=== PATIENT | female | born 1940 | race Caucasian/White ===

== ENCOUNTER 2018-05-02 09:48 | Emergency (ER) | payer OTHER ==
[2018-05-02 09:59] VITALS: BMI 27.3
--- NOTE | 2018-05-02 10:01 | PDOC ---
History of Present Illness - General Chief Complaint: Injury Stated Complaint: Laceration OVER RIGHT EYE/FALL Time Seen by Provider: 05/02/18 10:00 Past History - Past Medical History Allergies/Adverse Reactions: Allergies Allergy/AdvReac Type Severity Reaction Status Date / Time No Known Allergies Allergy Verified 05/02/18 09:55 Home Medications: Ambulatory Orders Montelukast Na [Singulair -] 10 mg PO HS 12/14/15 Omeprazole [Prilosec (RX)] 40 mg PO DAILY 12/14/15 Zolpidem Tartrate [Ambien] 10 mg PO HS 12/14/15 Albuterol Sulfate Inhaler - [Ventolin HFA Inhaler -] 1 - 2 inh PO QID PRN #0 07/22 Methylprednisolone [Medrol Dose Benedict] 4 mg PO ASDIR #21 tablet 12/15/15 Salmeterol/Fluticasone [Advair 100Mcg/50Mcg -] 1 inh PO BID #1 diskus 12/15/15 Azithromycin [Zithromax Tri-Benedict (3 DAYS) -] 500 mg PO DAILY #3 tablet 12/17/15 Asthma: Yes Cancer: No Cardiac Disorders: No CVA: No COPD: No CHF: No Diabetes: No Hypercholesterolemia: Yes - Immunization History Immunization Up to Date: Yes - Suicide/Smoking/Psychosocial Hx Smoking History: Never smoked Have you smoked in the past 12 months: No Hx Alcohol Use: No Drug/Substance Use Hx: No Substance Use Type: None *Physical Exam - Vital Signs Last Vital Signs Temp Pulse Resp BP Pulse Ox 98.1 F 102 H 18 156/76 94 L 05/02/18 09:55 05/02/18 09:55 05/02/18 09:55 05/02/18 09:55 05/02/18 09:55 *DC/Admit/Observation/Transfer - Referrals Referrals: Addis Hand MD [Primary Care Provider] - - Patient Instructions - Post Discharge Activity
[2018-05-02] MEDS ORDERED: ACETAMINOPHEN 325 MG TABLET (FP) PO ONE (10:18)
--- NOTE | 2018-05-02 10:26 | PDOC ---
History of Present Illness - General Chief Complaint: Injury Stated Complaint: Laceration OVER RIGHT EYE/FALL Time Seen by Provider: 05/02/18 10:00 History Source: Patient, Family - History of Present Illness Occurred: reports: this morning Pain Location: reports: face, head Method of Injury: Yes: fall Past History - Past Medical History Allergies/Adverse Reactions: Allergies Allergy/AdvReac Type Severity Reaction Status Date / Time No Known Allergies Allergy Verified 05/02/18 09:55 Home Medications: Ambulatory Orders Montelukast Na [Singulair -] 10 mg PO HS 12/14/15 Omeprazole [Prilosec (RX)] 40 mg PO DAILY 12/14/15 Zolpidem Tartrate [Ambien] 10 mg PO HS 12/14/15 Albuterol Sulfate Inhaler - [Ventolin HFA Inhaler -] 1 - 2 inh PO QID PRN #0 07/22 Methylprednisolone [Medrol Dose Benedict] 4 mg PO ASDIR #21 tablet 12/15/15 Salmeterol/Fluticasone [Advair 100Mcg/50Mcg -] 1 inh PO BID #1 diskus 12/15/15 Azithromycin [Zithromax Tri-Benedict (3 DAYS) -] 500 mg PO DAILY #3 tablet 12/17/15 Asthma: Yes Cancer: No Cardiac Disorders: No CVA: No COPD: No CHF: No Diabetes: No Hypercholesterolemia: Yes - Immunization History Immunization Up to Date: Yes - Suicide/Smoking/Psychosocial Hx Smoking History: Never smoked Have you smoked in the past 12 months: No Hx Alcohol Use: No Drug/Substance Use Hx: No Substance Use Type: None Review of Systems - Review of Systems Respiratory: No: Shortness of Breath Cardiac (ROS): No: Chest Pain, Lightheadedness, Palpitations, Syncope ABD/GI: No: Nausea, Vomiting Musculoskeletal: Yes: Joint Pain. No: Back Pain, Joint Swelling Neurological: Yes: Headache. No: Dizziness *Physical Exam - Vital Signs Last Vital Signs Temp Pulse Resp BP Pulse Ox 98.1 F 102 H 18 156/76 94 L 05/02/18 09:55 05/02/18 09:55 05/02/18 09:55 05/02/18 09:55 05/02/18 09:55 - Physical Exam General Appearance: Yes: Appropriately Dressed, Moderate Distress HEENT: positive: Normal Voice, Other (~1cm superficial lac to r forehead, ~3cm hematoma to L parietal scalp) Neck: positive: Supple. negative: Tender, Decreased range of motion Respiratory/Chest: positive: Lungs Clear, Normal Breath Sounds. negative: Respiratory Distress Cardiovascular: positive: Regular Rate, S1, S2 Gastrointestinal/Abdominal: positive: Soft. negative: Tender Integumentary: positive: Dry, Warm Neurologic: positive: Fully Oriented, Alert, Normal Mood/Affect ED Treatment Course - LABORATORY CBC & Chemistry Diagram: 05/02/18 13:18 05/02/18 13:18 - RADIOLOGY Radiology Studies Ordered: Category Date Time Status HEAD CT WITHOUT CONTRAST [CT] Stat CT Scan 05/02/18 10:15 Ordered HIP & PELVIS-LEFT [RAD] Stat Radiology 05/02/18 10:17 Ordered HIP & PELVIS-RIGHT [RAD] Stat Radiology 05/02/18 10:17 Ordered SPINE-LUMBAR SACRAL [RAD] Stat Radiology 05/02/18 10:19 Ordered Medical Decision Making - Medical Decision Making 05/02/18 10:21 78-year-old female, history of asthma, s/p "lung surgery" for pleural effusion remotely, osteoporosis, brought in by family member after unwitnessed fall. States she swung door in her apartment this am andthat door swung back hitting her in the forehead and knocking her to the ground. Denies any LOC, dizziness, visual changes, nausea or vomiting. Mostly complaining to pain to left side of head. Not on any blood thinners. Also complaining of vague pain to left buttocks and states she has not tried to ambulate since fall. Denies any dizziness or chest pain prior to incident. No neck, back or abdominal pain and denies any other injuries at this time See exam Head injury s/p m/l mechanical fall No LOC, not on blood thinners Neuro intact -CTH -lac repair (tetanus uptodate) done by Dr Rae w/ me present to evaluate -pain control -XRs hips/spine -anticipate dc if w/u neg 05/02/18 12:52 Patient now reports significant right shoulder pain, worse with movement. On exam, patient has no obvious swelling or deformity, but does complain of pain with range of motion. Elbow, wrist and hand uninvolved and no snuffbox tenderness. Sling given and xray pending. Pt also reports continued pain to L buttocks area but able to bear weight in ED. Xray hips/spine read as neg. Will continue to control pain and if persistent will get CT r/o occult fx. CTH read as neg for acute bleed w/ possible s/o acute vs chronic sinusitis. Clinically no e/o acute sinus infxn. Patient continues to sat 94% on room air though denies any shortness of breath, chest pain or wheezing. Patient does report what sounds like a chronic cough. No fever or chills. Lungs clear on exam. Will tx for possible asthma flare, get CXR, EKG and labs 05/02/18 13:49 Pt signed out to Dr Rae at this time *DC/Admit/Observation/Transfer Diagnosis at time of Disposition: Laceration - Referrals Referrals: Addis Hand MD [Primary Care Provider] - - Patient Instructions - Post Discharge Activity
[2018-05-02] MEDS ORDERED: ACETAMINOPHEN 325 MG TABLET (FP) ONE (10:37)
--- NOTE | 2018-05-02 12:52 | PDOC ---
*Physical Exam - Vital Signs Last Vital Signs Temp Pulse Resp BP Pulse Ox 97.8 F 87 16 130/64 94 L 05/02/18 12:11 05/02/18 12:11 05/02/18 12:11 05/02/18 12:11 05/02/18 12:11 ED Treatment Course - Medications Given in the ED: ED Medications Discontinued Medications Generic Name Dose Route Start Last Admin Trade Name Harjeet PRN Reason Stop Dose Admin Acetaminophen 650 mg 05/02/18 10:18 05/02/18 10:40 Tylenol - PO 05/02/18 10:19 650 mg ONCE ONE Administration Medical Decision Making - Medical Decision Making Conducted laceration repair (4 simple, interrupted sutures) for GHADA Mcgrath. GHADA Mcgrath inspected results before discharge. 05/02/18 12:52 *DC/Admit/Observation/Transfer Diagnosis at time of Disposition: Laceration - Referrals Referrals: Addis Hand MD [Primary Care Provider] - - Patient Instructions - Post Discharge Activity Procedure Note Procedure: I performed laceration repair on behalf of GHADA Mcgrath for Ms. Perla. Pt had an approximately 1 cm superficial, well-approximated laceration over the R eyebrow. Bleeding was controlled. The wound was cleaned and irrigated with sterile saline. I injected approximately 4 cc of lidocaine. Using sterile technique, the wound was closed with 4 simple interrupted sutures using 6.0 non- absorbable polypropylene sutures. Bacitracin was applied. The pt expressed minimal pain, bleeding was controlled, and the wound was well-approximated. GHADA Mcgrath inspected the repair before discharge and provided wound care instructions to the pt.
[2018-05-02] MEDS ORDERED: traMADol HCL 50 MG TABLET PO ONE (13:17)
[2018-05-02] MEDS ORDERED: ALBUTEROL SO4 2.5/IPRATROPIUM 0.5 INH SOL 3 ML VIAL.NEB. NEB ONE ×2 (13:17→13:23)
[2018-05-02] MEDS ORDERED: methylPREDNISolone NA SUCC 125 MG/2 ML VIAL IVPUSH ONE (13:17)
[2018-05-02] MEDS ORDERED: traMADol HCL 50 MG TABLET ONE (13:22)
[2018-05-02] MEDS ORDERED: methylPREDNISolone NA SUCC 125 MG/2 ML VIAL ONE (13:23)
[2018-05-02 13:27] LABS: BASO % 0.2 % (0-2.0); EOS % 0.5 % (0-4.5); HEMATOCRIT 39.3 % (32.4-45.2); HEMOGLOBIN 12.9 GM/dL (10.7-15.3); MCH 29.7 pg (25.7-33.7); MCHC 32.9 g/dl (32.0-36.0); MEAN CELL VOLUME 90.1 fl (80-96); MEAN PLT VOLUME 6.5 fl (7.5-11.1); MONO % 3.6 % (3.8-10.2); NEUT % 88.7 % (42.8-82.8); PLATELET COUNT 276 K/MM3 (134-434); RBC 4.37 M/mm3 (3.60-5.2); RDW 13.5 % (11.6-15.6); WHITE BLOOD COUNT 13.7 K/mm3 (4.0-10.0)
[2018-05-02 13:52] LABS: ALBUMIN 3.6 g/dl (3.4-5.0); ANION GAP 7 (8-16); BILIRUBIN,TOTAL 0.5 mg/dL (0.2-1.0); BLOOD UREA NITROGEN 14 mg/dL (7-18); CALCIUM 8.5 mg/dL (8.5-10.1); CHLORIDE 106 mmol/L (98-107); CO2 28 mmol/L (21-32); CREATININE 0.8 mg/dL (0.55-1.02); GLUCOSE,RANDOM 108 mg/dL (74-106); POTASSIUM 4.1 mmol/L (3.5-5.1); SGOT/AST 29 U/L (15-37); SGPT/ALT 31 U/L (12-78); SODIUM 141 mmol/L (136-145); TOT PROT 7.3 g/dl (6.4-8.2)
[2018-05-02 13:55] LABS: ALK PHOS 102 U/L (45-117)
[2018-05-02] MEDS ORDERED: predniSONE 20 MG TABLET (UD) PO ONE (17:11)
[2018-05-02] MEDS ORDERED: predniSONE 20 MG TABLET (UD) ONE (17:13)
[2018-05-02] MEDS ORDERED: morphine CARPU-JECT 2 MG/1 ML DISP.SYRIN IVPUSH ONE (18:16)
[2018-05-02] MEDS ORDERED: MORPHINE SULFATE 2 MG/ML VIAL ONE (18:17)
[2018-05-02 20:06] VITALS: BP 142/78; PULSE 85; TEMP 98.3
--- NOTE | 2018-05-05 10:48 | EKG ---
Test Reason : Blood Pressure : / mmHG Vent. Rate : 091 BPM Atrial Rate : 091 BPM P-R Int : 174 ms QRS Dur : 086 ms QT Int : 390 ms P-R-T Axes : 079 106 072 degrees QTc Int : 479 ms NORMAL SINUS RHYTHM PROBABLE NORMAL ECG WHEN COMPARED WITH ECG OF 16-DEC-2015 18:52, NO SIGNIFICANT CHANGE WAS FOUND Confirmed by RIVAS DACOSTA MD ([id number]) on 05/05/2018 10:48:01 AM Referred By: Confirmed By:RIVAS DACOSTA MD
== END 2018-05-02 20:05 | disposition home or self-care (01) ==
LOC: JER 09:48
PROC: 3E0F7GC Introduction of Other Therapeutic Substance into Respiratory Tract, Via Natural or Artificial Opening (ICD-10-PCS; principal; 2018-05-02)
PROC: 3E033NZ Introduction of Analgesics, Hypnotics, Sedatives into Peripheral Vein, Percutaneous Approach (ICD-10-PCS; 2018-05-02)
PROC: 0HQ1XZZ Repair Face Skin, External Approach (ICD-10-PCS; 2018-05-02)
DX: S01.81XA Laceration without foreign body of other part of head, initial encounter (principal)
CPT/HCPCS: 12011; 36415; 70450-TC; 71046-TC-FY; 72100-TC-FY; 72192-TC; 73030-TC-RT-FY; 73523-TC-FY; 73610-TC-LT-FY; 73630-TC-LT; 80053; 82550; 82553; 84484; 85025; 93005; 93010; 94640; 96374; 99281-25; J7620

== ENCOUNTER 2019-12-06 14:10 | Emergency (ER) | payer OTHER ==
[2019-12-06 14:22] VITALS: BP 120/64; PULSE 81; TEMP 97.7; BMI 24.0
--- NOTE | 2019-12-06 15:18 | PDOC ---
History of Present Illness <LauraJaneyshayna Thorpe - Last Filed: 12/06/19 16:50> - General History Source: Patient, Community Support Worker Used Exam Limitations: Language Barrier ([id number]) - History of Present Illness Initial Comments: 12/06/19 17:37 79F PMH Asthma, osteoporosis presenting with fevers/chills, productive cough, and whole body aches since yesterday. Taking theraflu w/ relief. Yellow / white sputum. Denies increased sob from baseline; endorses chest pain only w/ coughing , no chest pain at rest. Good appetite, po tolerant, denies n/v/d. rcvd 2 vaccines in 08/2019, does not remember which. <Pb Choen - Last Filed: 12/06/19 17:37> - General Chief Complaint: Respiratory Stated Complaint: FLU LIKE SYMPTOMS Time Seen by Provider: 12/06/19 14:35 Past History <Janey Sanchez - Last Filed: 12/06/19 16:50> - Past Medical History Asthma: Yes Cancer: No Cardiac Disorders: No CVA: No COPD: No CHF: No Diabetes: No Hypercholesterolemia: Yes - Immunization History Immunization Up to Date: Yes - Psycho Social/Smoking Cessation Hx Smoking History: Never smoked Have you smoked in the past 12 months: No Hx Alcohol Use: No Drug/Substance Use Hx: No Substance Use Type: None <Pb Cohen - Last Filed: 12/06/19 17:37> - Past Medical History Allergies/Adverse Reactions: Allergies Allergy/AdvReac Type Severity Reaction Status Date / Time No Known Allergies Allergy Verified 12/06/19 14:22 Home Medications: Ambulatory Orders Montelukast Na [Singulair -] 10 mg PO HS 12/14/15 Omeprazole [Prilosec (RX)] 40 mg PO DAILY 12/14/15 Zolpidem Tartrate [Ambien] 10 mg PO HS 12/14/15 Albuterol Sulfate Inhaler - [Ventolin HFA Inhaler -] 1 - 2 inh PO QID PRN #0 07/22 Methylprednisolone [Medrol Dose Benedict] 4 mg PO ASDIR #21 tablet 12/15/15 Salmeterol/Fluticasone [Advair 100Mcg/50Mcg -] 1 inh PO BID #1 diskus 12/15/15 Azithromycin [Zithromax Tri-Benedict (3 DAYS) -] 500 mg PO DAILY #3 tablet 12/17/15 Oxycodone HCl/Acetaminophen [Percocet 5-325 mg Tablet] 1 tab PO Q4H PRN #4 tablet MDD 4 05/02/18 Oxycodone HCl/Acetaminophen [Percocet 5-325 mg Tablet] 1 tab PO Q6H PRN #4 tablet MDD 4 05/02/18 Albuterol Sulfate Inhaler - [Ventolin Hfa Inhaler -] 1 - 2 inh PO Q4H PRN #1 inhaler 12/06/19 Review of Systems - Review of Systems Able to Perform ROS?: Yes Comments:: 12/06/19 17:37 CONSTITUTIONAL: endorses subjective f/c HEENT: endorses rhinorrhea and mild headache. Denies sore throat RESP: endorses productive cough. Denies SOB CARD: endorses cp w/ cough only. GI: Denies N / V / D, abdominal pain, bloody stool, inability to tolerate PO : Denies dysuria, hematuria. endorses longstanding urinary frequency (managed by pcp). Is the patient limited Hungarian proficient: Yes <Pb Cohen - Last Filed: 12/06/19 17:37> *Physical Exam - Vital Signs Last Vital Signs Temp Pulse Resp BP Pulse Ox 97.7 F 81 18 120/64 99 12/06/19 14:15 12/06/19 14:15 12/06/19 14:15 12/06/19 14:15 12/06/19 14:15 <Janey Sanchez - Last Filed: 12/06/19 16:50> - Vital Signs Last Vital Signs Temp Pulse Resp BP Pulse Ox 97.7 F 81 18 120/64 99 12/06/19 14:15 12/06/19 14:15 12/06/19 14:15 12/06/19 14:15 12/06/19 14:15 - Physical Exam 12/06/19 17:37 GEN: Well appearing, NAD, comfortable. AAOx3. HEENT: NC/AT, EOMI, PERRL. No facial asymmetry. MMM, Erythematous posterior pharynx w/ one small exudative spot on the right tonsil. Normal voice. Supple neck w/ FROM. CV: S1/S2, RRR, no m/r/g LUNG: CTAB, no wheezes, crackles, rales, rhonchi. GI: Soft, ndnt, +BS, no guarding, no rebound. MSK: No obvious deformities of all extremities. SKIN: Warm, dry, no rashes appreciated. PSYCH: Normal mood and affect. NEURO: Moving all extremities well. <Pb Cohen - Last Filed: 12/06/19 17:37> ED Treatment Course - RADIOLOGY Radiology Studies Ordered: Category Date Time Status CHEST PA & LAT [RAD] Stat Radiology 12/06/19 14:36 Taken <Janey Sanchez - Last Filed: 12/06/19 16:50> Medical Decision Making - Medical Decision Making 12/06/19 15:17 79F w/ 1 day of acute onset subjective f/c, productive cough, and body aches. DDx - flu, viral URI; consider strep but unlikely bacterial; r/o PNA or lower airway pathology - flu, strep - CXR - likely dc home 12/06/19 16:14 strep neg flu neg pain ctrl; duoneb 12/06/19 16:41 rcvd meds / nebs dc after <CohenPb - Last Filed: 12/06/19 17:37> Discharge <Janey Sanchez - Last Filed: 12/06/19 16:50> - Discharge Information Problems reviewed: Yes - Admission No <Pb Cohen - Last Filed: 12/06/19 17:37> - Discharge Information Clinical Impression/Diagnosis: Viral respiratory illness Condition: Stable Disposition: HOME - Additional Discharge Information Prescriptions: Albuterol Sulfate Inhaler - [Ventolin Hfa Inhaler -] 1 - 2 inh PO Q4H PRN #1 inhaler PRN Reason: Asthma - Follow up/Referral Referrals: Soco Corley MD [Primary Care Provider] - - Patient Discharge Instructions Patient Printed Discharge Instructions: DI for Viral Upper Respiratory Infection -- Adult Additional Instructions: We sent albuterol to [facility], please pick it up and use as prescribed. Continue taking theraflu as directed on the label for your symptoms. Drink plenty of fluids. Follow up with your Primary Care Doctor in the next 5-7 days. Continue your home medications as prescribed. Return to the nearest Emergency Department if you experience - worsening symptoms - chest pain - shortness of breath - anything that concerns you Enviamos albuterol a [facility], recjalo y selo segn lo prescrito. Contine tomando theraflu meron se indica en la etiqueta para shantel sntomas. Beber mucho lquido. Shikha un seguimiento con العلي mdico de atencin primaria en los prximos 5-7 hsieh. Contine shantel medicamentos caseros segn lo prescrito. Regrese al departamento de emergencias ms cercano si experimenta - empeoramiento de los sntomas - Dolor de pecho - falta de aliento - cualquier cosa que te preocupe Print Language: MONGOLIAN - Post Discharge Activity
--- NOTE | 2019-12-06 15:25 | PDOC ---
Attending Attestation - Resident Resident Name: Pb Cohen - ED Attending Attestation I have performed the following: I have examined & evaluated the patient, The case was reviewed & discussed with the resident, I agree w/resident's findings & plan - HPI HPI: 12/06/19 15:25 79F PMH Asthma, osteoporosis presenting with fevers/chills, productive cough, and whole body aches since yesterday. - Physicial Exam PE: 12/06/19 15:24 Agree with the resident's HPI and PE as documented in the electronic medical record. NAD, well appearing, EOMI, PERRL, nl conjunctiva, anicteric; neck supple. lungs clear, RRR, abdomen soft nontender. no rebound, guarding. Back nontender. DURHAM x4, no focal neuro deficits. nonpitting peripheral edema. normal color for ethnicity, WWP. no calf tenderness. 12/06/19 16:51 - Medical Decision Making 12/06/19 15:24 Vital Signs Temp Pulse Resp BP Pulse Ox 97.7 F 81 18 120/64 99 12/06/19 14:15 12/06/19 14:15 12/06/19 14:15 12/06/19 14:15 12/06/19 14:15 Differential diagnosis includes viral syndrome, URI, bronchitis, influenza, pneumonia 12/06/19 16:07 Flu test is negative, strep test is also negative. Interpreted by ED Physician: CXR (2 view): no acute abnormality: no infiltrates , bones appear intact and structures normal alignment, cardiac silhouette within normal limits. no free air under diaphragm, no pneumothorax. GIVEN DUONEB here, for the cough, tylenol for aches. feels better breathing comfortably. airway intact. nontoxic/septic appearing no labs indicated. likely viral URI, treat supportively prn albuterol inhaler to use for the cough/viral bronchitis Pt to be discharged in stable condition. Patient made aware of clinical impression, treatment recommendations and disposition plan, return precautions discussed (including but not limited to new or persistent/worsening symptoms, pain, fevers, or signs of infection, chest pain, respiratory distress, inability to tolerate oral intake, dehydration, syncope, or neurologic changes) . Follow up with PMD as recommended, follow up information provided, take medications as instructed for duration of time. continue with supportive care, avoid triggers and precipitants. All questions answered to patient's satisfaction and expressed understanding and comfort with this. At the time of discharge, the patient is alert, clinically improved, tolerating po and verbalizes understanding of instructions, satisfied with the care received and felt comfortable with the plan. Patient does not suffer from an acute life- threatening medical condition at this time and is safe for outpatient follow- up. 12/06/19 16:49 12/06/19 16:51
[2019-12-06] MEDS ORDERED: ACETAMINOPHEN 325 MG TABLET (FP) PO ONE (16:07)
[2019-12-06] MEDS ORDERED: ALBUTEROL SO4 2.5/IPRATROPIUM 0.5 INH SOL 3 ML VIAL.NEB. NEB ONE ×2 (16:08→16:31)
[2019-12-06] MEDS ORDERED: ACETAMINOPHEN 325 MG TABLET (FP) ONE (16:31)
== END 2019-12-06 17:35 | disposition home or self-care (01) ==
LOC: JER 14:10
PROC: 3E0F7GC Introduction of Other Therapeutic Substance into Respiratory Tract, Via Natural or Artificial Opening (ICD-10-PCS; principal; 2019-12-06)
DX: J06.9 Acute upper respiratory infection, unspecified (principal); B97.89 Other viral agents as the cause of diseases classified elsewhere; J45.909 Unspecified asthma, uncomplicated; E78.00 Pure hypercholesterolemia, unspecified
CPT/HCPCS: 71046-TC-FY; 87070; 87804; 87880; 94640; 99283-25

== ENCOUNTER 2023-02-07 15:41 | Inpatient (IN) | payer OTHER ==
[2023-02-07 16:03] VITALS: BMI 28.3
[2023-02-07] MEDS ORDERED: SODIUM CHLORIDE 1,000 ML IV STA ×2 (16:06→19:53)
[2023-02-07] MEDS ORDERED: ACETAMINOPHEN INJECTION 100 ML IVPB ONE (16:13)
[2023-02-07] MEDS ORDERED: ALBUTEROL SO4 2.5/IPRATROPIUM 0.5 INH SOL 3 ML VIAL.NEB. NEB ONE ×3 (16:29→20:08)
[2023-02-07] MEDS ORDERED: methylPREDNISolone NA SUCC 125 MG/2 ML VIAL IVPB ONE (16:33)
[2023-02-07] MEDS ORDERED: methylPREDNISolone NA SUCC 125 MG/2 ML VIAL ONE (16:53)
[2023-02-07 17:16] LABS: BASO % 0.3 % (0-2.0); HEMATOCRIT 37.1 % (32.4-45.2); HEMOGLOBIN 12.7 GM/dL (10.7-15.3); LYMPH % 8.8 % (8-40); MCHC 34.3 g/dl (32.0-36.0); MEAN CELL VOLUME 90.4 fl (80-96); MEAN PLT VOLUME 7.3 fl (7.5-11.1); MONO % 7.3 % (3.8-10.2); NEUT % 83.6 % (42.8-82.8); PLATELET COUNT 227 10^3/uL (134-434); RBC 4.11 M/mm3 (3.60-5.2); RDW 13.8 % (11.6-15.6); WHITE BLOOD COUNT 9.4 K/mm3 (4.0-10.0)
[2023-02-07 17:22] LABS: ALBUMIN 3.2 g/dl (3.4-5.0); BLOOD UREA NITROGEN 13.3 mg/dL (7-18)
[2023-02-07 17:23] LABS: PHOSPHOROUS 1.8 mg/dL (2.5-4.9)
[2023-02-07 17:26] LABS: BILIRUBIN,TOTAL 0.6 mg/dL (0.2-1)
[2023-02-07 17:29] LABS: N-TERMINAL BNP 346.7 pg/ml (5-450)
[2023-02-07] MEDS ORDERED: NAPH,MB-DB/K PH,MBDB POWDER PACKET PO ONE (19:06)
[2023-02-07] MEDS ORDERED: NAPH,MB-DB/K PH,MBDB POWDER PACKET ONE (20:10)
[2023-02-07] MEDS ORDERED: ALBUTEROL SO4 0.083% IH SOL 2.5 MG/3 ML VIAL.NEB. NEB PRN (21:13)
[2023-02-07] MEDS ORDERED: VANCOMYCIN/WATER FOR INJ (PEG) 1,000 MG/200 ML BAG IVPB SCH (22:00)
[2023-02-07] MEDS ORDERED: AZITHROMYCIN IVPB 500 MG/250 ML BAG IVPB ONE (22:00)
[2023-02-07] MEDS ORDERED: ALBUTEROL SO4 2.5/IPRATROPIUM 0.5 INH SOL 3 ML VIAL.NEB. NEB PRN (22:30)
[2023-02-07] MEDS: PIPERACILLIN/TAZOB 4.5 GM 4.5 GM in DEXTROSE 5%-WATER 100 ML IVPB SCH (22:35)
[2023-02-07] MEDS: BUDESONIDE/FORMETEROL FUMARATE 80/4.5 mcg INHALER IH SCH (22:45)
[2023-02-08] MEDS: methylPREDNISolone NA SUCC 40 MG/1 ML VIAL IVPUSH SCH ×3 (02:57→17:25)
[2023-02-08] MEDS: PIPERACILLIN/TAZOB 4.5 GM 4.5 GM in DEXTROSE 5%-WATER 100 ML IVPB SCH ×3 (06:23→14:15)
[2023-02-08] MEDS: INSULIN SLIDING SCALE (NOVOLOG) 1 VIAL SQ SCH ×3 (06:26→17:25)
[2023-02-08] MEDS ORDERED: TIOTROPIUM/OLODATEROL HCL (STIOLTO) 4 GM INHALER IH SCH (07:00)
[2023-02-08] MEDS ORDERED: ALBUTEROL SO4 2.5/IPRATROPIUM 0.5 INH SOL 3 ML VIAL.NEB. NEB SCH (08:00)
[2023-02-08 08:34] LABS: BASO % 0.1 % (0-2.0); CHLORIDE 112 mmol/L (98-107); HEMATOCRIT 30.9 % (32.4-45.2); HEMOGLOBIN 10.7 GM/dL (10.7-15.3); LYMPH % 8.1 % (8-40); MCH 31.5 pg (25.7-33.7); MCHC 34.5 g/dl (32.0-36.0); MEAN PLT VOLUME 7.3 fl (7.5-11.1); MONO % 1.6 % (3.8-10.2); NEUT % 90.2 % (42.8-82.8); PLATELET COUNT 170 10^3/uL (134-434); POTASSIUM 3.7 mmol/L (3.5-5.1); RBC 3.39 M/mm3 (3.60-5.2); RDW 13.7 % (11.6-15.6); SODIUM 140 mmol/L (136-145); WHITE BLOOD COUNT 6.3 K/mm3 (4.0-10.0)
[2023-02-08 08:38] LABS: ANION GAP 7 MMOL/L (8-16); BLOOD UREA NITROGEN 10.3 mg/dL (7-18); CO2 21 mmol/L (21-32); GLUCOSE,RANDOM 179 mg/dL (74-106)
[2023-02-08 08:41] LABS: CREATININE 0.8 mg/dL (0.55-1.3); PHOSPHOROUS 2.1 mg/dL (2.5-4.9); SGOT/AST 17 U/L (15-37); SGPT/ALT 19 U/L (13-61)
[2023-02-08 08:43] LABS: BILIRUBIN,TOTAL 0.3 mg/dL (0.2-1); TOT PROT 5.5 g/dl (6.4-8.2)
[2023-02-08 08:44] LABS: ALK PHOS 58 U/L (45-117)
[2023-02-08 08:45] LABS: ALBUMIN 2.5 g/dl (3.4-5.0); CALCIUM 6.8 mg/dL (8.5-10.1)
[2023-02-08] MEDS: BUDESONIDE/FORMETEROL FUMARATE 80/4.5 mcg INHALER IH SCH ×2 (09:42→22:07)
[2023-02-08] MEDS: PANTOPRAZOLE 40 MG TABLET PO SCH (09:42)
[2023-02-08] MEDS: ENOXAPARIN NA (PORCINE) 40 MG/0.4 ML DISP.SYRIN SQ SCH (09:42)
[2023-02-08] MEDS ORDERED: AZITHROMYCIN IVPB 250 MG in DEXTROSE 5%-WATER - 250 ML IVPB SCH (10:00)
[2023-02-08] MEDS ORDERED: INSULIN (NOVOLOG) ASPART 100 UNITS/ML 10ML VIAL ONE ×2 (11:11→16:58)
[2023-02-08 12:02] VITALS: RESP 20
[2023-02-08] MEDS: VANCOMYCIN 1 GM in D5W (PRE-DOCKED) 1,000 MG/250 ML (RESTRICTED TO ID ONLY IVPB SCH (14:14)
[2023-02-08] MEDS: PIPERACILLIN/TAZOB 3.375 GM 3.375 GM in DEXTROSE 5%-WATER - 50 ML IVPB SCH (17:26)
[2023-02-08] MEDS ORDERED: ALBUTEROL SO4 0.083% IH SOL 2.5 MG/3 ML VIAL.NEB. NEB PRN (18:53)
[2023-02-09] MEDS: methylPREDNISolone NA SUCC 40 MG/1 ML VIAL IVPUSH SCH ×3 (02:05→17:03)
[2023-02-09] MEDS: PIPERACILLIN/TAZOB 3.375 GM 3.375 GM in DEXTROSE 5%-WATER - 50 ML IVPB SCH ×3 (02:05→17:04)
[2023-02-09] MEDS: INSULIN SLIDING SCALE (NOVOLOG) 1 VIAL SQ SCH ×3 (06:45→17:38)
[2023-02-09 08:00] LABS: PH,URINE 5.5 (5.0-8.0); URINE APPEARANCE CLEAR; URINE BILIRUBIN NEGATIVE (NEGATIVE); URINE COLOR YELLOW; URINE GLUCOSE (UA) NEGATIVE (NEGATIVE); URINE KETONE NEGATIVE (NEGATIVE); URINE LEUK ESTERASE NEGATIVE (NEGATIVE); URINE NITRITE NEGATIVE (NEGATIVE); URINE PROTEIN TRACE (NEGATIVE); URINE UROBILINOGEN 0.2 mg/dL (0.2-1.0)
[2023-02-09 08:58] LABS: HEMATOCRIT 32.9 % (32.4-45.2); HEMOGLOBIN 11.2 GM/dL (10.7-15.3); MCH 30.7 pg (25.7-33.7); MCHC 34.1 g/dl (32.0-36.0); MEAN PLT VOLUME 7.7 fl (7.5-11.1); PLATELET COUNT 217 10^3/uL (134-434); RBC 3.66 M/mm3 (3.60-5.2); RDW 13.8 % (11.6-15.6); WHITE BLOOD COUNT 14.2 K/mm3 (4.0-10.0)
[2023-02-09 09:31] LABS: CALCIUM 7.8 mg/dL (8.5-10.1)
[2023-02-09 09:32] LABS: ALBUMIN 2.6 g/dl (3.4-5.0); BLOOD UREA NITROGEN 14.5 mg/dL (7-18); MAGNESIUM 2.2 mg/dL (1.8-2.4)
[2023-02-09 09:34] LABS: CREATININE 0.8 mg/dL (0.55-1.3)
[2023-02-09 09:35] LABS: TOT PROT 5.8 g/dl (6.4-8.2)
[2023-02-09 09:36] LABS: BILIRUBIN,TOTAL 0.3 mg/dL (0.2-1)
[2023-02-09] MEDS: ENOXAPARIN NA (PORCINE) 40 MG/0.4 ML DISP.SYRIN SQ SCH (09:38)
[2023-02-09] MEDS: BUDESONIDE/FORMETEROL FUMARATE 80/4.5 mcg INHALER IH SCH ×2 (09:38→21:45)
[2023-02-09] MEDS: PANTOPRAZOLE 40 MG TABLET PO SCH (09:38)
[2023-02-09 09:42] LABS: ANISOCYTOSIS 0; MACROCYTOSIS 0
[2023-02-09] MEDS ORDERED: TIOTROPIUM BROMIDE 2.5 MCG (SPIRIVA) RESPIMAT INHALER IH SCH (10:00)
[2023-02-09] MEDS ORDERED: INSULIN (NOVOLOG) ASPART 100 UNITS/ML 10ML VIAL ONE ×2 (11:17→17:39)
[2023-02-09] MEDS: ALBUTEROL SO4 2.5/IPRATROPIUM 0.5 INH SOL 3 ML VIAL.NEB. NEB SCH ×3 (12:30→20:04)
[2023-02-10] MEDS: PIPERACILLIN/TAZOB 3.375 GM 3.375 GM in DEXTROSE 5%-WATER - 50 ML IVPB SCH ×3 (02:51→17:01)
[2023-02-10] MEDS: methylPREDNISolone NA SUCC 40 MG/1 ML VIAL IVPUSH SCH ×3 (02:54→22:03)
[2023-02-10] MEDS: INSULIN SLIDING SCALE (NOVOLOG) 1 VIAL SQ SCH ×3 (06:14→17:00)
[2023-02-10] MEDS: ALBUTEROL SO4 2.5/IPRATROPIUM 0.5 INH SOL 3 ML VIAL.NEB. NEB SCH ×4 (07:37→19:45)
[2023-02-10 08:39] LABS: HEMATOCRIT 31.3 % (32.4-45.2); HEMOGLOBIN 10.6 GM/dL (10.7-15.3); MCH 30.6 pg (25.7-33.7); MCHC 33.7 g/dl (32.0-36.0); MEAN CELL VOLUME 90.7 fl (80-96); MEAN PLT VOLUME 7.3 fl (7.5-11.1); PLATELET COUNT 218 10^3/uL (134-434); RBC 3.45 M/mm3 (3.60-5.2); RDW 13.7 % (11.6-15.6); WHITE BLOOD COUNT 12.3 K/mm3 (4.0-10.0)
[2023-02-10 09:01] LABS: POTASSIUM 4.2 mmol/L (3.5-5.1)
[2023-02-10 09:04] LABS: ALBUMIN 2.5 g/dl (3.4-5.0); BLOOD UREA NITROGEN 18.6 mg/dL (7-18); CALCIUM 7.8 mg/dL (8.5-10.1)
[2023-02-10 09:06] LABS: MAGNESIUM 2.2 mg/dL (1.8-2.4)
[2023-02-10 09:07] LABS: CREATININE 0.9 mg/dL (0.55-1.3)
[2023-02-10 09:08] LABS: TOT PROT 5.6 g/dl (6.4-8.2)
[2023-02-10 09:09] LABS: BILIRUBIN,TOTAL 0.2 mg/dL (0.2-1)
[2023-02-10 09:40] LABS: ANISOCYTOSIS 0; MACROCYTOSIS 1+
[2023-02-10] MEDS: ENOXAPARIN NA (PORCINE) 40 MG/0.4 ML DISP.SYRIN SQ SCH (10:06)
[2023-02-10] MEDS: PANTOPRAZOLE 40 MG TABLET PO SCH (10:06)
[2023-02-10] MEDS: BUDESONIDE/FORMETEROL FUMARATE 80/4.5 mcg INHALER IH SCH ×2 (10:07→22:03)
[2023-02-10] MEDS ORDERED: INSULIN (NOVOLOG) ASPART 100 UNITS/ML 10ML VIAL ONE ×2 (11:47→16:58)
[2023-02-11] MEDS: methylPREDNISolone NA SUCC 40 MG/1 ML VIAL IVPUSH SCH (03:02)
[2023-02-11] MEDS: PIPERACILLIN/TAZOB 3.375 GM 3.375 GM in DEXTROSE 5%-WATER - 50 ML IVPB SCH ×2 (03:02→10:54)
[2023-02-11] MEDS: ALBUTEROL SO4 2.5/IPRATROPIUM 0.5 INH SOL 3 ML VIAL.NEB. NEB SCH ×2 (07:52→11:22)
[2023-02-11 08:04] LABS: POTASSIUM 4.2 mmol/L (3.5-5.1)
[2023-02-11 08:07] LABS: CALCIUM 8.2 mg/dL (8.5-10.1)
[2023-02-11 08:08] LABS: ALBUMIN 2.8 g/dl (3.4-5.0)
[2023-02-11] MEDS: INSULIN SLIDING SCALE (NOVOLOG) 1 VIAL SQ SCH ×2 (08:09→13:26)
[2023-02-11 08:10] LABS: MAGNESIUM 2.5 mg/dL (1.8-2.4)
[2023-02-11 08:11] LABS: HEMATOCRIT 32.4 % (32.4-45.2); HEMOGLOBIN 10.9 GM/dL (10.7-15.3); MCH 30.3 pg (25.7-33.7); MCHC 33.7 g/dl (32.0-36.0); MEAN CELL VOLUME 89.8 fl (80-96); MEAN PLT VOLUME 7.2 fl (7.5-11.1); PLATELET COUNT 273 10^3/uL (134-434); RBC 3.61 M/mm3 (3.60-5.2); RDW 13.8 % (11.6-15.6); WHITE BLOOD COUNT 11.5 K/mm3 (4.0-10.0)
[2023-02-11 08:13] LABS: BILIRUBIN,TOTAL 0.4 mg/dL (0.2-1)
[2023-02-11 09:13] LABS: ANISOCYTOSIS 0; HELMET CELLS 0; HOWELL-JOLLY BODIES 0; MACROCYTOSIS 0; OVALOCYTE 0; ROULEAU 0; SICKELED CELLS 0; TARGET CELLS 0; TEAR DROP CELLS 0; TOXIC GRANULATION 0
[2023-02-11] MEDS ORDERED: methylPREDNISolone NA SUCC 40 MG/1 ML VIAL IVPUSH SCH (10:00)
[2023-02-11] MEDS: PANTOPRAZOLE 40 MG TABLET PO SCH (10:55)
[2023-02-11] MEDS: ENOXAPARIN NA (PORCINE) 40 MG/0.4 ML DISP.SYRIN SQ SCH (10:55)
[2023-02-11] MEDS: BUDESONIDE/FORMETEROL FUMARATE 80/4.5 mcg INHALER IH SCH (10:55)
[2023-02-11] MEDS ORDERED: INSULIN (NOVOLOG) ASPART 100 UNITS/ML 10ML VIAL ONE (13:24)
[2023-02-11 16:25] VITALS: BP 121/77; PULSE 78; TEMP 98
== END 2023-02-11 16:13 | disposition home health service (06) | DRG 194 ==
LOC: JER 15:41 → JERBED 18:35 → J8W 21:14
PROVIDERS: ADMIT Internal Medicine; ATTEND Nurse Practitioner Acute Care
DX: J18.9 Pneumonia, unspecified organism (principal); J45.901 Unspecified asthma with (acute) exacerbation; R09.02 Hypoxemia; E78.5 Hyperlipidemia, unspecified
CPT/HCPCS: 0241U-QW; 36415; 71045-TC-FY; 71250-TC; 80053; 81003; 82962; 83605; 83735; 83880; 84100; 84484; 85025; 87040; 87070; 87077; 87086; 87205; 87899; 93005; 93010; 94640; 94761; 97116-GP; 97161-GP; 99285-25; J3535

== ENCOUNTER 2023-10-17 12:07 | Emergency (ER) | payer OTHER ==
[2023-10-17] MEDS ORDERED: ALBUTEROL SO4 2.5/IPRATROPIUM 0.5 INH SOL 3 ML VIAL.NEB. NEB ONE ×2 (13:24→14:46)
[2023-10-17] MEDS ORDERED: predniSONE 20 MG TABLET (UD) PO ONE (13:24)
[2023-10-17 13:37] VITALS: BMI 22.2
[2023-10-17] MEDS ORDERED: predniSONE 20 MG TABLET (UD) ONE (14:46)
[2023-10-17 14:47] LABS: HEMATOCRIT 40.1 % (32.4-45.2); HEMOGLOBIN 13.1 GM/dL (10.7-15.3); MCH 29.7 pg (25.7-33.7); MCHC 32.7 g/dl (32.0-36.0); MEAN CELL VOLUME 90.9 fl (80-96); MEAN PLT VOLUME 6.4 fl (7.5-11.1); PLATELET COUNT 283 10^3/uL (134-434); RBC 4.41 M/mm3 (3.60-5.2); RDW 14.3 % (11.6-15.6); WHITE BLOOD COUNT 12.2 K/mm3 (4.0-10.0)
[2023-10-17 15:08] LABS: POTASSIUM 4.2 mmol/L (3.5-5.1)
[2023-10-17 15:10] LABS: CALCIUM 8.5 mg/dL (8.5-10.1)
[2023-10-17 15:11] LABS: ALBUMIN 3.4 g/dl (3.4-5.0); BLOOD UREA NITROGEN 15.1 mg/dL (7-18)
[2023-10-17 15:14] LABS: CREATININE 0.8 mg/dL (0.55-1.3)
[2023-10-17 15:15] LABS: BILIRUBIN,TOTAL 0.4 mg/dL (0.2-1)
[2023-10-17 15:20] LABS: N-TERMINAL BNP 390.8 pg/ml (5-450)
[2023-10-17 15:52] LABS: ANISOCYTOSIS 0; MACROCYTOSIS 0
[2023-10-17 16:06] VITALS: BP 112/63; PULSE 95; RESP 21; TEMP 97.8
[2023-10-17 17:16] LABS: URINE APPEARANCE CLEAR; URINE BILIRUBIN NEGATIVE (NEGATIVE); URINE COLOR YELLOW; URINE GLUCOSE (UA) NEGATIVE (NEGATIVE); URINE KETONE NEGATIVE (NEGATIVE); URINE LEUK ESTERASE NEGATIVE (NEGATIVE); URINE NITRITE NEGATIVE (NEGATIVE); URINE PROTEIN NEGATIVE (NEGATIVE); URINE UROBILINOGEN 0.2 mg/dL (0.2-1.0)
[2023-10-17] MEDS ORDERED: MAGNESIUM 1GM/D5W - 1 GM/100 ML IVPB IVPB ONE ×2 (17:16→17:23)
== END 2023-10-17 22:42 | disposition home or self-care (01) ==
LOC: JER 12:07
PROC: 3E033GC Introduction of Other Therapeutic Substance into Peripheral Vein, Percutaneous Approach (ICD-10-PCS; principal; 2023-10-17)
PROC: 3E0F7GC Introduction of Other Therapeutic Substance into Respiratory Tract, Via Natural or Artificial Opening (ICD-10-PCS; 2023-10-17)
DX: J20.9 Acute bronchitis, unspecified (principal); R05.9 Cough, unspecified; R06.02 Shortness of breath; R51.9 Headache, unspecified; R07.89 Other chest pain; R68.83 Chills (without fever); Z20.822 Contact with and (suspected) exposure to COVID-19
CPT/HCPCS: 0241U-QW; 36415; 71045-TC-FY; 80053; 81003; 83735; 83880; 84484; 85025; 87086; 93005; 93010; 94640; 96374; 99285-25

== ENCOUNTER 2023-10-20 01:52 | Inpatient (IN) | payer OTHER ==
[2023-10-20] MEDS ORDERED: DEXAMETHASONE SOD PHOSPHATE 10 MG/1 ML VIAL PO ONE (02:17)
[2023-10-20] MEDS ORDERED: MAGNESIUM SULF 50% (8.12 MEQ/2 ML-1 GM VIAL) IVPB ONE (02:18)
[2023-10-20 02:19] VITALS: BMI 21.4
[2023-10-20] MEDS ORDERED: MAGNESIUM SULFATE IN WATER 2 GM/50 ML IVPB IVPB ONE (02:22)
[2023-10-20] MEDS ORDERED: DEXAMETHASONE SOD PHOSPHATE 10 MG/1 ML VIAL ONE (02:22)
[2023-10-20] MEDS: ALBUTEROL SO4 2.5/IPRATROPIUM 0.5 INH SOL 3 ML VIAL.NEB. NEB SCH ×8 (02:27→21:28)
[2023-10-20 02:53] LABS: VENOUS BASE EXCESS 0.9 mmol/L (-2-2); VENOUS O2 SATURATION 71.5 % (70-80); VENOUS PCO2 60.3 mmHg (38-52); VENOUS PH 7.297 (7.310-7.410)
[2023-10-20 02:54] LABS: HEMOGLOBIN 13.3 GM/dL (10.7-15.3); LYMPH % 13.4 % (8-40); MCH 29.8 pg (25.7-33.7); MCHC 32.5 g/dl (32.0-36.0); MEAN CELL VOLUME 91.8 fl (80-96); MEAN PLT VOLUME 6.5 fl (7.5-11.1); MONO % 7.1 % (3.8-10.2); NEUT % 79.5 % (42.8-82.8); PLATELET COUNT 322 10^3/uL (134-434); RBC 4.47 M/mm3 (3.60-5.2); RDW 14.2 % (11.6-15.6); WHITE BLOOD COUNT 9.3 K/mm3 (4.0-10.0)
[2023-10-20 03:37] LABS: POTASSIUM 4.4 mmol/L (3.5-5.1)
[2023-10-20 03:40] LABS: ALBUMIN 3.3 g/dl (3.4-5.0); BLOOD UREA NITROGEN 16.4 mg/dL (7-18); MAGNESIUM 2.2 mg/dL (1.8-2.4)
[2023-10-20 03:43] LABS: CREATININE 0.7 mg/dL (0.55-1.3); PHOSPHOROUS 3.6 mg/dL (2.5-4.9)
[2023-10-20 03:45] LABS: BILIRUBIN,TOTAL 0.3 mg/dL (0.2-1); TOT PROT 7.1 g/dl (6.4-8.2)
[2023-10-20 03:48] LABS: N-TERMINAL BNP 1126.1 pg/ml (5-450)
[2023-10-20] MEDS ORDERED: CEFTRIAXONE 1 GM in DEXTROSE 5%-WATER - 50 ML IVPB ONE (03:55)
[2023-10-20] MEDS ORDERED: AZITHROMYCIN IVPB 500 MG in DEXTROSE 5%-WATER - 250 ML IVPB ONE (03:55)
[2023-10-20] MEDS ORDERED: FUROSEMIDE 40 MG/4 ML INJECTABLE VIAL IVPUSH ONE (03:55)
[2023-10-20] MEDS ORDERED: cefTRIAXone SODIUM 1 GM VIAL ONE (03:58)
[2023-10-20] MEDS ORDERED: FUROSEMIDE 40 MG/4 ML INJECTABLE VIAL ONE (03:59)
[2023-10-20] MEDS ORDERED: AZITHROMYCIN IVPB 500 MG/250 ML BAG IVPB ONE (04:07)
[2023-10-20 05:49] LABS: PH,URINE 5.5 (5.0-8.0); URINE APPEARANCE CLEAR; URINE BILIRUBIN NEGATIVE (NEGATIVE); URINE COLOR YELLOW; URINE GLUCOSE (UA) NEGATIVE (NEGATIVE); URINE KETONE NEGATIVE (NEGATIVE); URINE LEUK ESTERASE NEGATIVE (NEGATIVE); URINE NITRITE NEGATIVE (NEGATIVE); URINE PROTEIN NEGATIVE (NEGATIVE); URINE UROBILINOGEN 0.2 mg/dL (0.2-1.0)
[2023-10-20] MEDS ORDERED: ALBUTEROL SO4 2.5/IPRATROPIUM 0.5 INH SOL 3 ML VIAL.NEB. NEB ONE ×2 (08:34→16:11)
[2023-10-20] MEDS ORDERED: methylPREDNISolone NA SUCC 40 MG/1 ML VIAL ONE ×2 (08:34→15:18)
[2023-10-20] MEDS: methylPREDNISolone NA SUCC 40 MG/1 ML VIAL IVPUSH SCH ×3 (08:35→21:26)
[2023-10-20] MEDS ORDERED: PANTOPRAZOLE 40 MG TABLET PO ONE (10:27)
[2023-10-20] MEDS ORDERED: CEFTRIAXONE 2 GM/100 ML BAG IVPB ONE (10:27)
[2023-10-20] MEDS: CEFTRIAXONE 2 GM in DEXTROSE 5%-WATER 100 ML IVPB SCH (10:50)
[2023-10-20] MEDS: ENOXAPARIN NA (PORCINE) 40 MG/0.4 ML DISP.SYRIN SQ SCH (10:51)
[2023-10-20] MEDS: PANTOPRAZOLE 40 MG TABLET PO SCH (11:07)
[2023-10-20] MEDS: BUDESONIDE/FORMETEROL FUMARATE 160/4.5 mcg INHALER IH SCH ×2 (14:31→21:29)
[2023-10-20] MEDS: MONTELUKAST NA 10 MG TABLET PO SCH (21:28)
[2023-10-20 21:50] VITALS: RESP 18
[2023-10-20] MEDS ORDERED: MONTELUKAST NA 5 MG TAB.CHEW PO SCH (22:00)
[2023-10-21] MEDS: methylPREDNISolone NA SUCC 40 MG/1 ML VIAL IVPUSH SCH ×2 (02:57→17:57)
[2023-10-21] MEDS: ALBUTEROL SO4 2.5/IPRATROPIUM 0.5 INH SOL 3 ML VIAL.NEB. NEB SCH ×4 (08:00→20:05)
[2023-10-21] MEDS ORDERED: methylPREDNISolone NA SUCC 40 MG/1 ML VIAL IVPUSH SCH (09:00)
[2023-10-21] MEDS: CEFTRIAXONE 2 GM in DEXTROSE 5%-WATER 100 ML IVPB SCH (09:28)
[2023-10-21] MEDS: ENOXAPARIN NA (PORCINE) 40 MG/0.4 ML DISP.SYRIN SQ SCH (09:28)
[2023-10-21] MEDS: PANTOPRAZOLE 40 MG TABLET PO SCH (09:28)
[2023-10-21] MEDS ORDERED: predniSONE 20 MG TABLET (UD) PO SCH (10:00)
[2023-10-21 11:52] LABS: HEMATOCRIT 39.8 % (32.4-45.2); HEMOGLOBIN 12.9 GM/dL (10.7-15.3); MCH 29.8 pg (25.7-33.7); MCHC 32.6 g/dl (32.0-36.0); MEAN CELL VOLUME 91.6 fl (80-96); MEAN PLT VOLUME 6.8 fl (7.5-11.1); PLATELET COUNT 374 10^3/uL (134-434); RBC 4.34 M/mm3 (3.60-5.2); RDW 14.3 % (11.6-15.6); WHITE BLOOD COUNT 10.5 K/mm3 (4.0-10.0)
[2023-10-21 12:12] LABS: POTASSIUM 4.2 mmol/L (3.5-5.1)
[2023-10-21 12:15] LABS: BLOOD UREA NITROGEN 22.5 mg/dL (7-18); MAGNESIUM 2.5 mg/dL (1.8-2.4)
[2023-10-21 12:20] LABS: BILIRUBIN,TOTAL 0.2 mg/dL (0.2-1)
[2023-10-21 12:34] LABS: ANISOCYTOSIS 0; MACROCYTOSIS 0
[2023-10-21] MEDS: AZITHROMYCIN IVPB 250 MG in DEXTROSE 5%-WATER - 250 ML IVPB SCH (14:09)
[2023-10-21] MEDS: BUDESONIDE/FORMETEROL FUMARATE 160/4.5 mcg INHALER IH SCH ×2 (14:36→23:37)
[2023-10-21] MEDS: MONTELUKAST NA 10 MG TABLET PO SCH (21:29)
[2023-10-22] MEDS: methylPREDNISolone NA SUCC 40 MG/1 ML VIAL IVPUSH SCH ×3 (01:13→18:25)
[2023-10-22] MEDS: ALBUTEROL SO4 2.5/IPRATROPIUM 0.5 INH SOL 3 ML VIAL.NEB. NEB SCH ×4 (08:25→20:05)
[2023-10-22] MEDS: PANTOPRAZOLE 40 MG TABLET PO SCH (09:54)
[2023-10-22] MEDS: ENOXAPARIN NA (PORCINE) 40 MG/0.4 ML DISP.SYRIN SQ SCH (09:54)
[2023-10-22] MEDS: CEFTRIAXONE 2 GM in DEXTROSE 5%-WATER 100 ML IVPB SCH (09:54)
[2023-10-22] MEDS ORDERED: guaiFENesin 200 MG/10 ML 10 ML UNIT-DOSE CUPS PO PRN (10:14)
[2023-10-22 10:30] LABS: HEMATOCRIT 40.3 % (32.4-45.2); HEMOGLOBIN 13.2 GM/dL (10.7-15.3); MCH 30.2 pg (25.7-33.7); MCHC 32.8 g/dl (32.0-36.0); MEAN CELL VOLUME 92.2 fl (80-96); MEAN PLT VOLUME 6.6 fl (7.5-11.1); PLATELET COUNT 377 10^3/uL (134-434); RBC 4.38 M/mm3 (3.60-5.2); RDW 14.4 % (11.6-15.6); WHITE BLOOD COUNT 12.5 K/mm3 (4.0-10.0)
[2023-10-22] MEDS: BUDESONIDE/FORMETEROL FUMARATE 160/4.5 mcg INHALER IH SCH ×2 (10:35→21:28)
[2023-10-22] MEDS: AZITHROMYCIN IVPB 250 MG in DEXTROSE 5%-WATER - 250 ML IVPB SCH (10:36)
[2023-10-22 12:37] LABS: BLOOD UREA NITROGEN 24.3 mg/dL (7-18); CALCIUM 7.6 mg/dL (8.5-10.1); CREATININE 0.9 mg/dL (0.55-1.3); MAGNESIUM 2.6 mg/dL (1.8-2.4); PHOSPHOROUS 3.7 mg/dL (2.5-4.9); POTASSIUM 4.3 mmol/L (3.5-5.1)
[2023-10-22] MEDS ORDERED: methylPREDNISolone NA SUCC 40 MG/1 ML VIAL IVPUSH SCH (14:00)
[2023-10-22] MEDS ORDERED: ACETAMINOPHEN 1000 MG/100 ML BAG IVPB PRN ×2 (15:44→16:28)
[2023-10-22] MEDS ORDERED: ALBUTEROL SO4 HFA INHALER IH PRN (15:44)
[2023-10-22] MEDS: MONTELUKAST NA 10 MG TABLET PO SCH (21:28)
[2023-10-23] MEDS: methylPREDNISolone NA SUCC 40 MG/1 ML VIAL IVPUSH SCH (04:15)
[2023-10-23] MEDS: ALBUTEROL SO4 2.5/IPRATROPIUM 0.5 INH SOL 3 ML VIAL.NEB. NEB SCH ×3 (07:55→15:50)
[2023-10-23] MEDS: PANTOPRAZOLE 40 MG TABLET PO SCH (09:21)
[2023-10-23] MEDS: CEFTRIAXONE 2 GM in DEXTROSE 5%-WATER 100 ML IVPB SCH (09:21)
[2023-10-23] MEDS: ENOXAPARIN NA (PORCINE) 40 MG/0.4 ML DISP.SYRIN SQ SCH (09:22)
[2023-10-23] MEDS: BUDESONIDE/FORMETEROL FUMARATE 160/4.5 mcg INHALER IH SCH (09:23)
[2023-10-23] MEDS ORDERED: methylPREDNISolone NA SUCC 40 MG/1 ML VIAL IVPUSH SCH (10:00)
[2023-10-23] MEDS ORDERED: POLYETHYLENE GLYCOL (HEALTHYLAX) 3350 17 GM PACKET PO SCH (10:00)
[2023-10-23 10:03] LABS: HEMATOCRIT 40.3 % (32.4-45.2); HEMOGLOBIN 13.4 GM/dL (10.7-15.3); MCH 30.4 pg (25.7-33.7); MCHC 33.2 g/dl (32.0-36.0); MEAN CELL VOLUME 91.4 fl (80-96); MEAN PLT VOLUME 6.4 fl (7.5-11.1); PLATELET COUNT 399 10^3/uL (134-434); RBC 4.41 M/mm3 (3.60-5.2); RDW 14.3 % (11.6-15.6); WHITE BLOOD COUNT 12.3 K/mm3 (4.0-10.0)
[2023-10-23 10:12] LABS: POTASSIUM 4.2 mmol/L (3.5-5.1)
[2023-10-23 10:18] LABS: BLOOD UREA NITROGEN 23.7 mg/dL (7-18); CALCIUM 7.9 mg/dL (8.5-10.1)
[2023-10-23 10:20] LABS: CREATININE 0.8 mg/dL (0.55-1.3)
[2023-10-23] MEDS: AZITHROMYCIN IVPB 250 MG in DEXTROSE 5%-WATER - 250 ML IVPB SCH (10:30)
[2023-10-23 11:32] LABS: ANISOCYTOSIS 0; HELMET CELLS 0; HOWELL-JOLLY BODIES 0; MACROCYTOSIS 0; OVALOCYTE 0; ROULEAU 0; SICKELED CELLS 0; TARGET CELLS 0; TEAR DROP CELLS 0; TOXIC GRANULATION 0
[2023-10-23 14:31] VITALS: BP 144/69; PULSE 88; TEMP 97.4
== END 2023-10-23 16:17 | disposition home or self-care (01) | DRG 202 ==
LOC: JER 01:52 → JERBED 05:19 → J5S 20:59
PROVIDERS: ADMIT Internal Medicine
DX: J21.9 Acute bronchiolitis, unspecified (principal); J18.9 Pneumonia, unspecified organism; J96.01 Acute respiratory failure with hypoxia; J47.0 Bronchiectasis with acute lower respiratory infection; J98.11 Atelectasis; J45.901 Unspecified asthma with (acute) exacerbation; J98.09 Other diseases of bronchus, not elsewhere classified; E78.5 Hyperlipidemia, unspecified; M81.0 Age-related osteoporosis without current pathological fracture; R00.0 Tachycardia, unspecified
CPT/HCPCS: 0241U-QW; 36415; 71250-TC; 80048; 80053; 81003; 82803; 83735; 83880; 84100; 84484; 85025; 85027; 86140; 87070; 87086; 87205; 87633; 87899; 93005; 93010; 93306-TC; 94640; 94761; 97116-GP; 97161-GP; 99285-25; J1100

== ENCOUNTER 2024-01-02 14:15 | Inpatient (IN) | payer OTHER ==
[2024-01-02] MEDS ORDERED: AZITHROMYCIN IVPB 500 MG/250 ML BAG IVPB ONE (15:21)
[2024-01-02] MEDS ORDERED: CEFTRIAXONE 1 GM/50 ML BAG ONE (15:21)
[2024-01-02 15:29] LABS: BASO % 0.2 % (0-2.0); EOS % 0.6 % (0-4.5); HEMATOCRIT 39.1 % (32.4-45.2); HEMOGLOBIN 12.4 GM/dL (10.7-15.3); LYMPH % 16.6 % (8-40); MCH 29.9 pg (25.7-33.7); MCHC 31.6 g/dl (32.0-36.0); MEAN CELL VOLUME 94.3 fl (80-96); MEAN PLT VOLUME 6.4 fl (7.5-11.1); MONO % 1.6 % (3.8-10.2); PLATELET COUNT 334 10^3/uL (134-434); RBC 4.15 M/mm3 (3.60-5.2); RDW 14.9 % (11.6-15.6); WHITE BLOOD COUNT 12.9 K/mm3 (4.0-10.0)
[2024-01-02] MEDS: CEFTRIAXONE 1 GM in DEXTROSE 5%-WATER - 100 ML IVPB ONE (15:29)
[2024-01-02] MEDS: AZITHROMYCIN IVPB 500 MG in DEXTROSE 5%-WATER - 250 ML IVPB ONE (15:29)
[2024-01-02 15:54] LABS: POTASSIUM 4.6 mmol/L (3.5-5.1)
[2024-01-02 15:55] LABS: CALCIUM 9.1 mg/dL (8.5-10.1)
[2024-01-02 15:56] LABS: ALBUMIN 3.4 g/dl (3.4-5.0); BLOOD UREA NITROGEN 16.1 mg/dL (7-18); MAGNESIUM 2.2 mg/dL (1.8-2.4)
[2024-01-02 15:59] LABS: CREATININE 0.8 mg/dL (0.55-1.3)
[2024-01-02 16:01] LABS: BILIRUBIN,TOTAL 0.4 mg/dL (0.2-1); TOT PROT 6.7 g/dl (6.4-8.2)
[2024-01-02] MEDS ORDERED: ACETAMINOPHEN 500 MG TABLET (FP) PO PRN (18:36)
[2024-01-02] MEDS ORDERED: ALBUTEROL SO4 2.5/IPRATROPIUM 0.5 INH SOL 3 ML VIAL.NEB. NEB PRN (18:38)
[2024-01-02] MEDS: MONTELUKAST NA 10 MG TABLET PO SCH (22:10)
[2024-01-02] MEDS: HEPARIN NA (PORCINE) 5,000 UNITS/ML 1ML VIAL SQ SCH (22:10)
[2024-01-02] MEDS: BUDESONIDE/FORMETEROL FUMARATE 160/4.5 mcg INHALER IH SCH (22:54)
[2024-01-03 01:17] VITALS: BMI 23.0
[2024-01-03 07:53] LABS: BASO % 0.3 % (0-2.0); HEMATOCRIT 36.4 % (32.4-45.2); HEMOGLOBIN 11.8 GM/dL (10.7-15.3); LYMPH % 10.6 % (8-40); MCH 30.1 pg (25.7-33.7); MCHC 32.4 g/dl (32.0-36.0); MEAN PLT VOLUME 6.6 fl (7.5-11.1); MONO % 2.1 % (3.8-10.2); PLATELET COUNT 363 10^3/uL (134-434); RBC 3.92 M/mm3 (3.60-5.2); RDW 14.6 % (11.6-15.6); WHITE BLOOD COUNT 11.8 K/mm3 (4.0-10.0)
[2024-01-03 08:10] LABS: POTASSIUM 4.5 mmol/L (3.5-5.1)
[2024-01-03 08:11] LABS: CALCIUM 8.6 mg/dL (8.5-10.1)
[2024-01-03 08:12] LABS: BLOOD UREA NITROGEN 16.5 mg/dL (7-18)
[2024-01-03 08:15] LABS: CREATININE 0.7 mg/dL (0.55-1.3)
[2024-01-03] MEDS ORDERED: cefTRIAXone SODIUM 1 GM VIAL ONE (10:12)
[2024-01-03] MEDS: PANTOPRAZOLE 40 MG TABLET PO SCH (10:38)
[2024-01-03] MEDS: CEFTRIAXONE 1 GM in DEXTROSE 5%-WATER - 50 ML IVPB SCH (10:38)
[2024-01-03] MEDS: AZITHROMYCIN IVPB 500 MG/250 ML BAG IVPB SCH (11:54)
[2024-01-03] MEDS: ALBUTEROL SO4 2.5/IPRATROPIUM 0.5 INH SOL 3 ML VIAL.NEB. NEB SCH (14:05)
[2024-01-03] MEDS: methylPREDNISolone NA SUCC 40 MG/1 ML VIAL IVPUSH SCH (16:45)
[2024-01-04] MEDS: POLYETHYLENE GLYCOL (HEALTHYLAX) 3350 17 GM PACKET PO ONE (14:07)
[2024-01-04] MEDS: MAGNESIUM HYDROX 2400MG/30ML ORAL SUSPENSION 30 ML CUP PO ONE (18:10)
[2024-01-06 10:08] LABS: HEMATOCRIT 36.6 % (32.4-45.2); HEMOGLOBIN 12.2 GM/dL (10.7-15.3); MCH 31.1 pg (25.7-33.7); MCHC 33.4 g/dl (32.0-36.0); MEAN CELL VOLUME 93.1 fl (80-96); MEAN PLT VOLUME 6.9 fl (7.5-11.1); PLATELET COUNT 341 10^3/uL (134-434); RBC 3.93 M/mm3 (3.60-5.2); RDW 14.9 % (11.6-15.6); WHITE BLOOD COUNT 13.2 K/mm3 (4.0-10.0)
[2024-01-06 10:32] LABS: POTASSIUM 4.1 mmol/L (3.5-5.1)
[2024-01-06 10:40] LABS: ANISOCYTOSIS 1+; MACROCYTOSIS 0
[2024-01-06 10:53] LABS: BILIRUBIN,TOTAL 0.4 mg/dL (0.2-1); CALCIUM 8.2 mg/dL (8.5-10.1); TOT PROT 6.1 g/dl (6.4-8.2)
[2024-01-06 10:54] LABS: ALBUMIN 2.9 g/dl (3.4-5.0); BLOOD UREA NITROGEN 24.6 mg/dL (7-18); MAGNESIUM 2.7 mg/dL (1.8-2.4)
[2024-01-06] MEDS ORDERED: methylPREDNISolone NA SUCC 40 MG/1 ML VIAL IVPUSH SCH (13:30)
[2024-01-06] MEDS: methylPREDNISolone NA SUCC 40 MG/1 ML VIAL IVPUSH SCH (18:34)
[2024-01-06 22:19] VITALS: RESP 18
[2024-01-07 08:20] LABS: HEMATOCRIT 35.9 % (32.4-45.2); HEMOGLOBIN 11.5 GM/dL (10.7-15.3); MCH 30.1 pg (25.7-33.7); MCHC 31.9 g/dl (32.0-36.0); MEAN CELL VOLUME 94.4 fl (80-96); MEAN PLT VOLUME 6.6 fl (7.5-11.1); PLATELET COUNT 290 10^3/uL (134-434); RBC 3.81 M/mm3 (3.60-5.2); RDW 14.7 % (11.6-15.6)
[2024-01-07 08:32] LABS: POTASSIUM 4.5 mmol/L (3.5-5.1)
[2024-01-07 08:39] LABS: BLOOD UREA NITROGEN 24.4 mg/dL (7-18); CALCIUM 7.6 mg/dL (8.5-10.1)
[2024-01-07 08:41] LABS: ALBUMIN 2.6 g/dl (3.4-5.0); MAGNESIUM 2.5 mg/dL (1.8-2.4)
[2024-01-07 08:43] LABS: CREATININE 0.8 mg/dL (0.55-1.3)
[2024-01-07 08:44] LABS: BILIRUBIN,TOTAL 0.3 mg/dL (0.2-1); TOT PROT 5.3 g/dl (6.4-8.2)
[2024-01-07 09:27] LABS: ANISOCYTOSIS 1+; MACROCYTOSIS 0
[2024-01-08 08:41] LABS: HEMATOCRIT 37.2 % (32.4-45.2); MCH 30.6 pg (25.7-33.7); MCHC 32.3 g/dl (32.0-36.0); MEAN CELL VOLUME 94.6 fl (80-96); MEAN PLT VOLUME 6.7 fl (7.5-11.1); PLATELET COUNT 312 10^3/uL (134-434); RBC 3.93 M/mm3 (3.60-5.2); RDW 14.8 % (11.6-15.6); WHITE BLOOD COUNT 15.1 K/mm3 (4.0-10.0)
[2024-01-08 08:58] LABS: POTASSIUM 4.2 mmol/L (3.5-5.1)
[2024-01-08 09:02] LABS: ALBUMIN 2.7 g/dl (3.4-5.0); BLOOD UREA NITROGEN 26.2 mg/dL (7-18); CALCIUM 7.9 mg/dL (8.5-10.1); MAGNESIUM 2.5 mg/dL (1.8-2.4)
[2024-01-08 09:04] LABS: CREATININE 0.8 mg/dL (0.55-1.3)
[2024-01-08 09:07] LABS: BILIRUBIN,TOTAL 0.3 mg/dL (0.2-1); TOT PROT 5.6 g/dl (6.4-8.2)
[2024-01-08 09:37] LABS: ANISOCYTOSIS 0; MACROCYTOSIS 0
[2024-01-08] MEDS: predniSONE 20 MG TABLET (UD) PO SCH (09:51)
[2024-01-08 10:11] VITALS: BP 116/61; PULSE 96; TEMP 98.8
== END 2024-01-08 11:53 | disposition home or self-care (01) | DRG 191 ==
LOC: JER 14:15 → JERBED 17:44 → J8W 20:56
PROVIDERS: ADMIT Internal Medicine; ATTEND Nurse Practitioner Acute Care
DX: J47.1 Bronchiectasis with (acute) exacerbation (principal); J44.0 Chronic obstructive pulmonary disease with (acute) lower respiratory infection; J45.31 Mild persistent asthma with (acute) exacerbation; J44.9 Chronic obstructive pulmonary disease, unspecified; M81.0 Age-related osteoporosis without current pathological fracture; R73.03 Prediabetes; E78.00 Pure hypercholesterolemia, unspecified
CPT/HCPCS: 0241U-QW; 36415; 71045-TC-FY; 80048; 80053; 83735; 85025; 87040; 87070; 87186; 87205; 93005; 93010; 94640; 99285-25; J1644

== ENCOUNTER 2024-04-14 18:22 | Inpatient (IN) | payer OTHER ==
[2024-04-14] MEDS ORDERED: ALBUTEROL SO4 2.5/IPRATROPIUM 0.5 INH SOL 3 ML VIAL.NEB. NEB ONE ×3 (20:48→22:06)
[2024-04-14] MEDS ORDERED: methylPREDNISolone NA SUCC 125 MG/2 ML VIAL ONE (20:49)
[2024-04-14] MEDS ORDERED: ACETAMINOPHEN INJECTION 100 ML IVPB ONE (20:49)
[2024-04-14 20:53] LABS: VENOUS BASE EXCESS -0.6 mmol/L (-2-2); VENOUS O2 SATURATION 63.2 % (70-80); VENOUS PCO2 44.6 mmHg (38-52); VENOUS PH 7.366 (7.310-7.410)
[2024-04-14] MEDS: methylPREDNISolone NA SUCC 125 MG/2 ML VIAL IVPUSH ONE (20:57)
[2024-04-14] MEDS: ALBUTEROL SO4 2.5/IPRATROPIUM 0.5 INH SOL 3 ML VIAL.NEB. NEB SCH (20:57)
[2024-04-14 20:58] LABS: BASO % 0.4 % (0-2.0); EOS % 1.2 % (0-4.5); HEMATOCRIT 34.4 % (32.4-45.2); HEMOGLOBIN 11.4 GM/dL (10.7-15.3); LYMPH % 14.4 % (8-40); MCH 30.5 pg (25.7-33.7); MCHC 33.2 g/dl (32.0-36.0); MEAN PLT VOLUME 6.6 fl (7.5-11.1); MONO % 10.3 % (3.8-10.2); NEUT % 73.7 % (42.8-82.8); PLATELET COUNT 239 10^3/uL (134-434); RBC 3.74 M/mm3 (3.60-5.2); RDW 15.1 % (11.6-15.6); WHITE BLOOD COUNT 6.4 K/mm3 (4.0-10.0)
[2024-04-14 21:12] LABS: POTASSIUM 4.3 mmol/L (3.5-5.1)
[2024-04-14 21:15] LABS: ALBUMIN 3.3 g/dl (3.4-5.0); BLOOD UREA NITROGEN 18.3 mg/dL (7-18); CALCIUM 8.2 mg/dL (8.5-10.1)
[2024-04-14 21:18] LABS: CREATININE 0.9 mg/dL (0.55-1.3)
[2024-04-14 21:19] LABS: TOT PROT 6.4 g/dl (6.4-8.2)
[2024-04-14 21:20] LABS: BILIRUBIN,TOTAL 0.4 mg/dL (0.2-1)
[2024-04-14] MEDS: ACETAMINOPHEN 1000 MG/100 ML BAG IVPB ONE (21:20)
[2024-04-15 00:01] LABS: N-TERMINAL BNP 453.9 pg/ml (5-450)
[2024-04-15] MEDS: REMDESIVIR 200 MG in SODIUM CHLORIDE 250 ML IVPB ONE (00:25)
[2024-04-15] MEDS ORDERED: ALBUTEROL SO4 HFA INHALER IH SCH (01:30)
[2024-04-15] MEDS ORDERED: ALBUTEROL SO4 HFA INHALER IH ONE (01:50)
[2024-04-15] MEDS: ALBUTEROL SO4 HFA INHALER IH SCH (01:52)
[2024-04-15] MEDS: ACETAMINOPHEN 1000 MG/100 ML BAG IVPB ONE (02:48)
[2024-04-15] MEDS: SODIUM CHLORIDE 1,000 ML IV STA ×2 (04:18→05:38)
[2024-04-15] MEDS ORDERED: ACETAMINOPHEN 1000 MG/100 ML BAG IVPB PRN ×2 (06:00→17:13)
[2024-04-15] MEDS ORDERED: ALBUTEROL SO4 HFA INHALER IH PRN (07:14)
[2024-04-15 07:42] LABS: BASO % 0.1 % (0-2.0); HEMATOCRIT 32.7 % (32.4-45.2); HEMOGLOBIN 10.9 GM/dL (10.7-15.3); MCH 31.5 pg (25.7-33.7); MCHC 33.2 g/dl (32.0-36.0); MEAN CELL VOLUME 94.8 fl (80-96); MEAN PLT VOLUME 6.7 fl (7.5-11.1); MONO % 1.5 % (3.8-10.2); NEUT % 86.4 % (42.8-82.8); PLATELET COUNT 205 10^3/uL (134-434); RBC 3.45 M/mm3 (3.60-5.2); RDW 14.8 % (11.6-15.6)
[2024-04-15 07:54] LABS: POTASSIUM 4.3 mmol/L (3.5-5.1)
[2024-04-15 07:59] LABS: ALBUMIN 2.7 g/dl (3.4-5.0); BLOOD UREA NITROGEN 14.6 mg/dL (7-18); MAGNESIUM 1.9 mg/dL (1.8-2.4)
[2024-04-15 08:02] LABS: CREATININE 0.7 mg/dL (0.55-1.3); PHOSPHOROUS 3.2 mg/dL (2.5-4.9)
[2024-04-15 08:03] LABS: BILIRUBIN,TOTAL 0.2 mg/dL (0.2-1)
[2024-04-15 08:04] LABS: TOT PROT 5.8 g/dl (6.4-8.2)
[2024-04-15] MEDS ORDERED: DEXAMETHASONE 4 MG TABLET (FP) ONE (09:38)
[2024-04-15] MEDS ORDERED: REMDESIVIR 100 MG in SODIUM CHLORIDE 250 ML IVPB SCH (10:00)
[2024-04-15] MEDS: DEXAMETHASONE 4 MG TABLET (FP) PO SCH (11:56)
[2024-04-15] MEDS: ENOXAPARIN NA (PORCINE) 40 MG/0.4 ML DISP.SYRIN SQ SCH (12:09)
[2024-04-15] MEDS: BUDESONIDE/FORMETEROL FUMARATE 160/4.5 mcg INHALER IH SCH (12:09)
[2024-04-15] MEDS ORDERED: ACETAMINOPHEN 325 MG TABLET (FP) PO PRN (17:12)
[2024-04-15] MEDS: REMDESIVIR 100 MG in SODIUM CHLORIDE 250 ML IVPB SCH (21:47)
[2024-04-16 02:03] LABS: URINE APPEARANCE CLEAR; URINE BILIRUBIN NEGATIVE (NEGATIVE); URINE COLOR YELLOW; URINE GLUCOSE (UA) NEGATIVE (NEGATIVE); URINE KETONE NEGATIVE (NEGATIVE); URINE LEUK ESTERASE NEGATIVE (NEGATIVE); URINE NITRITE NEGATIVE (NEGATIVE); URINE PROTEIN NEGATIVE (NEGATIVE); URINE UROBILINOGEN 0.2 mg/dL (0.2-1.0)
[2024-04-16 06:39] LABS: EOS % 0.1 % (0-4.5); HEMOGLOBIN 10.9 GM/dL (10.7-15.3); LYMPH % 22.8 % (8-40); MCHC 33.2 g/dl (32.0-36.0); MEAN CELL VOLUME 93.5 fl (80-96); MEAN PLT VOLUME 6.9 fl (7.5-11.1); NEUT % 69.1 % (42.8-82.8); PLATELET COUNT 234 10^3/uL (134-434); RBC 3.53 M/mm3 (3.60-5.2); WHITE BLOOD COUNT 7.6 K/mm3 (4.0-10.0)
[2024-04-16 06:57] LABS: CALCIUM 7.4 mg/dL (8.5-10.1)
[2024-04-16 06:58] LABS: ALBUMIN 2.8 g/dl (3.4-5.0); BLOOD UREA NITROGEN 15.6 mg/dL (7-18); MAGNESIUM 1.9 mg/dL (1.8-2.4)
[2024-04-16 07:01] LABS: CREATININE 0.6 mg/dL (0.55-1.3)
[2024-04-16 07:02] LABS: BILIRUBIN,TOTAL 0.2 mg/dL (0.2-1)
[2024-04-16 07:03] LABS: TOT PROT 5.7 g/dl (6.4-8.2)
[2024-04-16] MEDS ORDERED: INSULIN (LEVEMIR) 100 UNITS/ML UNITS SQ ONE (07:28)
[2024-04-16] MEDS ORDERED: DEXAMETHASONE SOD PHOSPHATE 10 MG/1 ML VIAL ONE (09:35)
[2024-04-16] MEDS ORDERED: ENOXAPARIN NA (PORCINE) 40 MG/0.4 ML DISP.SYRIN SQ ONE (09:35)
[2024-04-16] MEDS: DEXAMETHASONE SOD PHOSPHATE 10 MG/1 ML VIAL IVPUSH SCH (09:37)
[2024-04-17 08:40] LABS: BASO % 0.2 % (0-2.0); EOS % 0.1 % (0-4.5); HEMATOCRIT 35.9 % (32.4-45.2); HEMOGLOBIN 12.1 GM/dL (10.7-15.3); LYMPH % 26.9 % (8-40); MCH 31.1 pg (25.7-33.7); MCHC 33.6 g/dl (32.0-36.0); MEAN CELL VOLUME 92.6 fl (80-96); MEAN PLT VOLUME 6.6 fl (7.5-11.1); MONO % 6.2 % (3.8-10.2); NEUT % 66.6 % (42.8-82.8); PLATELET COUNT 269 10^3/uL (134-434); RBC 3.88 M/mm3 (3.60-5.2); RDW 14.8 % (11.6-15.6)
[2024-04-17 08:55] LABS: ALBUMIN 3.1 g/dl (3.4-5.0)
[2024-04-17 08:56] LABS: BLOOD UREA NITROGEN 19.6 mg/dL (7-18); CALCIUM 8.1 mg/dL (8.5-10.1)
[2024-04-17 08:58] LABS: CREATININE 0.7 mg/dL (0.55-1.3)
[2024-04-17 09:00] LABS: BILIRUBIN,TOTAL 0.2 mg/dL (0.2-1); TOT PROT 6.3 g/dl (6.4-8.2)
[2024-04-18 09:14] LABS: BASO % 0.1 % (0-2.0); EOS % 0.3 % (0-4.5); HEMATOCRIT 36.5 % (32.4-45.2); HEMOGLOBIN 12.2 GM/dL (10.7-15.3); LYMPH % 23.9 % (8-40); MCH 30.8 pg (25.7-33.7); MCHC 33.5 g/dl (32.0-36.0); MEAN CELL VOLUME 91.9 fl (80-96); MEAN PLT VOLUME 6.8 fl (7.5-11.1); MONO % 5.7 % (3.8-10.2); PLATELET COUNT 275 10^3/uL (134-434); RBC 3.96 M/mm3 (3.60-5.2); RDW 15.1 % (11.6-15.6); WHITE BLOOD COUNT 9.9 K/mm3 (4.0-10.0)
[2024-04-18 09:40] LABS: POTASSIUM 4.2 mmol/L (3.5-5.1)
[2024-04-18 09:52] LABS: CREATININE 0.8 mg/dL (0.55-1.3)
[2024-04-18 09:54] LABS: TOT PROT 6.2 g/dl (6.4-8.2)
[2024-04-18 09:57] LABS: ALBUMIN 3.2 g/dl (3.4-5.0); BLOOD UREA NITROGEN 20.2 mg/dL (7-18); CALCIUM 8.4 mg/dL (8.5-10.1)
[2024-04-18 10:03] LABS: BILIRUBIN,TOTAL 0.4 mg/dL (0.2-1)
[2024-04-18] MEDS: methylPREDNISolone NA SUCC 40 MG/1 ML VIAL IVPUSH SCH (18:28)
[2024-04-19 10:22] LABS: HEMOGLOBIN 13.5 GM/dL (10.7-15.3); LYMPH % 13.6 % (8-40); MCH 30.7 pg (25.7-33.7); MCHC 33.7 g/dl (32.0-36.0); MEAN CELL VOLUME 91.1 fl (80-96); MEAN PLT VOLUME 6.8 fl (7.5-11.1); MONO % 0.9 % (3.8-10.2); NEUT % 85.5 % (42.8-82.8); PLATELET COUNT 316 10^3/uL (134-434); RBC 4.39 M/mm3 (3.60-5.2); WHITE BLOOD COUNT 8.5 K/mm3 (4.0-10.0)
[2024-04-19 10:42] LABS: POTASSIUM 4.3 mmol/L (3.5-5.1)
[2024-04-19 10:49] LABS: ALBUMIN 3.1 g/dl (3.4-5.0); BLOOD UREA NITROGEN 21.9 mg/dL (7-18); CALCIUM 8.1 mg/dL (8.5-10.1); MAGNESIUM 2.1 mg/dL (1.8-2.4)
[2024-04-19 10:50] LABS: CREATININE 0.8 mg/dL (0.55-1.3)
[2024-04-19 10:52] LABS: BILIRUBIN,TOTAL 0.6 mg/dL (0.2-1); TOT PROT 6.7 g/dl (6.4-8.2)
[2024-04-20] MEDS: predniSONE 20 MG TABLET (UD) PO SCH (10:10)
[2024-04-23 01:00] VITALS: RESP 18
[2024-04-23] MEDS ORDERED: predniSONE 20 MG TABLET (UD) PO SCH (09:51)
[2024-04-23 15:43] VITALS: BP 114/54; PULSE 83; TEMP 99.9
== END 2024-04-23 15:50 | disposition home or self-care (01) | DRG 177 ==
LOC: JER 18:22 → JERBED 22:26 → J8W 04-16 17:38 → J5S 04-17 00:22
PROVIDERS: ADMIT Internal Medicine
PROC: XW033E5 Introduction of Remdesivir Anti-infective into Peripheral Vein, Percutaneous Approach, New Technology Group 5 (ICD-10-PCS; principal; 2024-04-14)
DX: U07.1 COVID-19 (principal); J96.01 Acute respiratory failure with hypoxia; J45.901 Unspecified asthma with (acute) exacerbation; J44.1 Chronic obstructive pulmonary disease with (acute) exacerbation; I10 Essential (primary) hypertension; E78.5 Hyperlipidemia, unspecified
CPT/HCPCS: 0241U-QW; 36415; 71045-TC-FY; 80053; 81003; 82728; 82803; 83605; 83735; 83880; 84100; 84484; 85025; 85379; 86140; 86850; 86900; 86901; 87040; 87086; 93005; 93010; 94761; 97116-GP; 97162-GP; 99285-25; J0131; J0248; J1100

== ENCOUNTER 2024-04-24 11:51 | Inpatient (IN) | payer OTHER ==
[2024-04-24] MEDS ORDERED: ALBUTEROL SO4 2.5/IPRATROPIUM 0.5 INH SOL 3 ML VIAL.NEB. NEB ONE (12:57)
[2024-04-24] MEDS: ALBUTEROL SO4 2.5/IPRATROPIUM 0.5 INH SOL 3 ML VIAL.NEB. NEB ONE (13:01)
[2024-04-24 13:11] LABS: BASO % 0.3 % (0-2.0); EOS % 0.2 % (0-4.5); HEMATOCRIT 40.3 % (32.4-45.2); HEMOGLOBIN 13.3 GM/dL (10.7-15.3); LYMPH % 8.5 % (8-40); MCH 30.4 pg (25.7-33.7); MCHC 33.1 g/dl (32.0-36.0); MEAN PLT VOLUME 6.5 fl (7.5-11.1); PLATELET COUNT 343 10^3/uL (134-434); RBC 4.38 M/mm3 (3.60-5.2); RDW 15.2 % (11.6-15.6); WHITE BLOOD COUNT 18.3 K/mm3 (4.0-10.0)
[2024-04-24 13:32] LABS: POTASSIUM 4.5 mmol/L (3.5-5.1)
[2024-04-24 13:35] LABS: BLOOD UREA NITROGEN 18.1 mg/dL (7-18); CALCIUM 8.3 mg/dL (8.5-10.1)
[2024-04-24 13:38] LABS: CREATININE 0.9 mg/dL (0.55-1.3)
[2024-04-24 13:40] LABS: BILIRUBIN,TOTAL 0.9 mg/dL (0.2-1); TOT PROT 6.4 g/dl (6.4-8.2)
[2024-04-24] MEDS ORDERED: ACETAMINOPHEN 325 MG TABLET (FP) PO PRN (18:29)
[2024-04-24] MEDS ORDERED: VANCOMYCIN/WATER FOR INJ (PEG) 1,000 MG/200 ML BAG IVPB ONE (18:45)
[2024-04-24] MEDS: ALBUTEROL SO4 2.5/IPRATROPIUM 0.5 INH SOL 3 ML VIAL.NEB. NEB SCH (20:05)
[2024-04-24] MEDS: DEXAMETHASONE SOD PHOSPHATE 10 MG/1 ML VIAL IVPUSH SCH (20:57)
[2024-04-24] MEDS: PIPERACILLIN/TAZOB 3.375 GM 3.375 GM in DEXTROSE 5%-WATER - 50 ML IVPB SCH (20:57)
[2024-04-24] MEDS: VANCOMYCIN/WATER FOR INJ (PEG) 750 MG/150 ML BAG IVPB ONE (21:21)
[2024-04-24] MEDS: TIOTROPIUM BROMIDE 2.5 MCG (SPIRIVA) RESPIMAT INHALER IH SCH (21:21)
[2024-04-24] MEDS: BUDESONIDE/FORMETEROL FUMARATE 160/4.5 mcg INHALER IH SCH (23:48)
[2024-04-25] MEDS: ENOXAPARIN NA (PORCINE) 40 MG/0.4 ML DISP.SYRIN SQ SCH (09:59)
[2024-04-25 10:19] LABS: HEMATOCRIT 39.4 % (32.4-45.2); MCH 30.6 pg (25.7-33.7); MCHC 32.9 g/dl (32.0-36.0); MEAN CELL VOLUME 93.2 fl (80-96); MEAN PLT VOLUME 6.8 fl (7.5-11.1); PLATELET COUNT 317 10^3/uL (134-434); RBC 4.23 M/mm3 (3.60-5.2); RDW 14.7 % (11.6-15.6); WHITE BLOOD COUNT 13.6 K/mm3 (4.0-10.0)
[2024-04-25 10:39] LABS: POTASSIUM 4.4 mmol/L (3.5-5.1)
[2024-04-25 10:51] LABS: CALCIUM 8.1 mg/dL (8.5-10.1); MAGNESIUM 2.4 mg/dL (1.8-2.4)
[2024-04-25 10:54] LABS: PHOSPHOROUS 4.8 mg/dL (2.5-4.9)
[2024-04-25 15:04] VITALS: BMI 20.6
[2024-04-25] MEDS: PIPERACILLIN/TAZOB 3.375 GM 3.375 GM in DEXTROSE 5%-WATER - 50 ML IVPB SCH (17:58)
[2024-04-27] MEDS: POLYETHYLENE GLYCOL (HEALTHYLAX) 3350 17 GM PACKET PO ONE (06:00)
[2024-04-27] MEDS: MELATONIN 5 MG TABLETS PO ONE (08:19)
[2024-04-27 09:44] LABS: BASO % 0.7 % (0-2.0); EOS % 0.2 % (0-4.5); HEMATOCRIT 36.2 % (32.4-45.2); HEMOGLOBIN 11.8 GM/dL (10.7-15.3); MCH 30.8 pg (25.7-33.7); MCHC 32.7 g/dl (32.0-36.0); MEAN CELL VOLUME 94.2 fl (80-96); MEAN PLT VOLUME 6.7 fl (7.5-11.1); MONO % 5.8 % (3.8-10.2); NEUT % 78.3 % (42.8-82.8); PLATELET COUNT 314 10^3/uL (134-434); RBC 3.84 M/mm3 (3.60-5.2); RDW 15.3 % (11.6-15.6)
[2024-04-27 09:47] LABS: POTASSIUM 4.8 mmol/L (3.5-5.1)
[2024-04-27 09:54] LABS: CALCIUM 8.4 mg/dL (8.5-10.1)
[2024-04-27 09:55] LABS: ALBUMIN 2.8 g/dl (3.4-5.0); BLOOD UREA NITROGEN 18.6 mg/dL (7-18)
[2024-04-27 09:57] LABS: CREATININE 0.8 mg/dL (0.55-1.3)
[2024-04-27 09:58] LABS: BILIRUBIN,TOTAL 0.8 mg/dL (0.2-1)
[2024-04-27 09:59] LABS: TOT PROT 6.4 g/dl (6.4-8.2)
[2024-04-27] MEDS: methylPREDNISolone NA SUCC 40 MG/1 ML VIAL IVPUSH SCH (17:57)
[2024-04-28] MEDS: POLYETHYLENE GLYCOL (HEALTHYLAX) 3350 17 GM PACKET PO PRN (05:31)
[2024-04-28 09:49] LABS: BASO % 0.1 % (0-2.0); HEMATOCRIT 33.4 % (32.4-45.2); HEMOGLOBIN 11.2 GM/dL (10.7-15.3); LYMPH % 10.5 % (8-40); MCH 30.9 pg (25.7-33.7); MCHC 33.6 g/dl (32.0-36.0); MEAN CELL VOLUME 91.8 fl (80-96); MEAN PLT VOLUME 6.6 fl (7.5-11.1); MONO % 2.7 % (3.8-10.2); NEUT % 86.7 % (42.8-82.8); PLATELET COUNT 267 10^3/uL (134-434); RBC 3.63 M/mm3 (3.60-5.2); RDW 15.1 % (11.6-15.6); WHITE BLOOD COUNT 8.1 K/mm3 (4.0-10.0)
[2024-04-28 10:05] LABS: POTASSIUM 4.6 mmol/L (3.5-5.1)
[2024-04-28 10:07] LABS: CALCIUM 8.2 mg/dL (8.5-10.1)
[2024-04-28 10:08] LABS: BLOOD UREA NITROGEN 19.4 mg/dL (7-18)
[2024-04-28 10:11] LABS: CREATININE 0.7 mg/dL (0.55-1.3)
[2024-04-29 09:31] LABS: BASO % 1.1 % (0-2.0); EOS % 0.1 % (0-4.5); HEMATOCRIT 35.9 % (32.4-45.2); HEMOGLOBIN 11.6 GM/dL (10.7-15.3); LYMPH % 15.3 % (8-40); MCH 30.3 pg (25.7-33.7); MCHC 32.4 g/dl (32.0-36.0); MEAN CELL VOLUME 93.6 fl (80-96); MEAN PLT VOLUME 6.4 fl (7.5-11.1); MONO % 4.5 % (3.8-10.2); PLATELET COUNT 315 10^3/uL (134-434); RBC 3.83 M/mm3 (3.60-5.2); RDW 15.5 % (11.6-15.6); WHITE BLOOD COUNT 11.8 K/mm3 (4.0-10.0)
[2024-04-29] MEDS: methylPREDNISolone NA SUCC 40 MG/1 ML VIAL IVPUSH SCH (09:34)
[2024-04-29 09:39] LABS: INR 0.96 (0.83-1.09)
[2024-04-29 09:45] LABS: POTASSIUM 4.8 mmol/L (3.5-5.1)
[2024-04-29 09:49] LABS: CALCIUM 8.6 mg/dL (8.5-10.1)
[2024-04-29 09:50] LABS: BLOOD UREA NITROGEN 21.9 mg/dL (7-18)
[2024-04-29 09:53] LABS: CREATININE 0.8 mg/dL (0.55-1.3)
[2024-04-29 15:32] VITALS: BP 112/49; PULSE 93; RESP 18; TEMP 97.9
== END 2024-04-29 18:32 | disposition home or self-care (01) | DRG 190 ==
LOC: JER 11:51 → JERBED 15:13 → J8W 18:23 → J5S 04-27 21:06
PROVIDERS: ADMIT Internal Medicine; ATTEND Internal Medicine
DX: J44.1 Chronic obstructive pulmonary disease with (acute) exacerbation (principal); J18.9 Pneumonia, unspecified organism; E78.5 Hyperlipidemia, unspecified; I10 Essential (primary) hypertension; R09.02 Hypoxemia; J44.0 Chronic obstructive pulmonary disease with (acute) lower respiratory infection; R73.03 Prediabetes; M19.90 Unspecified osteoarthritis, unspecified site; R91.8 Other nonspecific abnormal finding of lung field; J45.909 Unspecified asthma, uncomplicated
CPT/HCPCS: 36415; 71046-TC-FY; 71250-TC; 74177-TC; 80048; 80053; 83735; 84100; 85025; 85027; 85610; 86140; 86850; 86900; 86901; 87070; 87081; 87205; 87899; 94640; 97116-GP; 97161-GP; 99285-25; J1100; Q9967

== ENCOUNTER 2024-07-06 09:25 | Inpatient (IN) | payer OTHER ==
[2024-07-06 10:06] VITALS: BMI 31.4
[2024-07-06] MEDS ORDERED: ALBUTEROL SO4 2.5/IPRATROPIUM 0.5 INH SOL 3 ML VIAL.NEB. NEB ONE (12:07)
[2024-07-06] MEDS ORDERED: ACETAMINOPHEN INJECTION 100 ML ONE (12:07)
[2024-07-06] MEDS ORDERED: DEXAMETHASONE SOD PHOSPHATE 10 MG/1 ML VIAL ONE (12:07)
[2024-07-06] MEDS: ACETAMINOPHEN 1000 MG/100 ML BAG IVPB ONE (12:23)
[2024-07-06] MEDS: DEXAMETHASONE SOD PHOSPHATE 10 MG/1 ML VIAL IVPUSH ONE (12:23)
[2024-07-06] MEDS: ALBUTEROL SO4 2.5/IPRATROPIUM 0.5 INH SOL 3 ML VIAL.NEB. NEB ONE (12:23)
[2024-07-06 12:31] LABS: VENOUS BASE EXCESS 2.5 mmol/L (-2-2); VENOUS O2 SATURATION 48.3 % (70-80); VENOUS PH 7.357 (7.310-7.410)
[2024-07-06 12:35] LABS: BASO % 0.6 % (0-2.0); EOS % 4.2 % (0-4.5); HEMATOCRIT 36.7 % (32.4-45.2); HEMOGLOBIN 11.9 GM/dL (10.7-15.3); LYMPH % 24.3 % (8-40); MCH 29.5 pg (25.7-33.7); MCHC 32.3 g/dl (32.0-36.0); MEAN CELL VOLUME 91.3 fl (80-96); MEAN PLT VOLUME 6.5 fl (7.5-11.1); MONO % 9.2 % (3.8-10.2); NEUT % 61.7 % (42.8-82.8); PLATELET COUNT 285 10^3/uL (134-434); RBC 4.02 M/mm3 (3.60-5.2); RDW 14.5 % (11.6-15.6)
[2024-07-06 13:16] LABS: POTASSIUM 4.5 mmol/L (3.5-5.1)
[2024-07-06 13:19] LABS: CALCIUM 8.8 mg/dL (8.5-10.1)
[2024-07-06 13:20] LABS: ALBUMIN 3.3 g/dl (3.4-5.0); BLOOD UREA NITROGEN 11.8 mg/dL (7-18)
[2024-07-06 13:23] LABS: CREATININE 0.7 mg/dL (0.55-1.3)
[2024-07-06 13:24] LABS: BILIRUBIN,TOTAL 0.5 mg/dL (0.2-1); TOT PROT 6.7 g/dl (6.4-8.2)
[2024-07-06] MEDS ORDERED: CEFTRIAXONE 1 GM/50 ML BAG ONE (13:45)
[2024-07-06] MEDS: CEFTRIAXONE 1 GM in DEXTROSE 5%-WATER - 100 ML IVPB ONE (13:59)
[2024-07-06] MEDS ORDERED: AZITHROMYCIN IVPB 500 MG/250 ML BAG IVPB ONE (14:08)
[2024-07-06] MEDS: AZITHROMYCIN IVPB 500 MG in DEXTROSE 5%-WATER - 250 ML IVPB ONE (14:36)
[2024-07-06] MEDS ORDERED: FUROSEMIDE 40 MG/4 ML INJECTABLE VIAL ONE (17:35)
[2024-07-06] MEDS: FUROSEMIDE 40 MG/4 ML INJECTABLE VIAL IVPUSH ONE (17:43)
[2024-07-06 19:30] LABS: PH,URINE 6.5 (5.0-8.0); URINE APPEARANCE CLEAR; URINE BILIRUBIN NEGATIVE (NEGATIVE); URINE COLOR YELLOW; URINE GLUCOSE (UA) 1+ (NEGATIVE); URINE KETONE NEGATIVE (NEGATIVE); URINE LEUK ESTERASE NEGATIVE (NEGATIVE); URINE NITRITE NEGATIVE (NEGATIVE); URINE PROTEIN NEGATIVE (NEGATIVE); URINE UROBILINOGEN 0.2 mg/dL (0.2-1.0)
[2024-07-06] MEDS: ALBUTEROL SO4 2.5/IPRATROPIUM 0.5 INH SOL 3 ML VIAL.NEB. NEB SCH (21:06)
[2024-07-07 08:36] LABS: HEMOGLOBIN 12.3 GM/dL (10.7-15.3); MCH 29.9 pg (25.7-33.7); MCHC 33.2 g/dl (32.0-36.0); MEAN PLT VOLUME 6.8 fl (7.5-11.1); PLATELET COUNT 314 10^3/uL (134-434); RBC 4.12 M/mm3 (3.60-5.2); RDW 14.4 % (11.6-15.6); WHITE BLOOD COUNT 9.5 K/mm3 (4.0-10.0)
[2024-07-07 08:57] LABS: POTASSIUM 4.5 mmol/L (3.5-5.1)
[2024-07-07 09:06] LABS: ALBUMIN 3.4 g/dl (3.4-5.0); CALCIUM 8.9 mg/dL (8.5-10.1)
[2024-07-07 09:10] LABS: CREATININE 0.8 mg/dL (0.55-1.3)
[2024-07-07 09:11] LABS: BILIRUBIN,TOTAL 0.5 mg/dL (0.2-1)
[2024-07-07] MEDS: CEFTRIAXONE 1 GM in DEXTROSE 5%-WATER - 50 ML IVPB SCH (10:18)
[2024-07-07] MEDS: ENOXAPARIN NA (PORCINE) 40 MG/0.4 ML DISP.SYRIN SQ SCH (10:22)
[2024-07-07] MEDS: guaiFENesin 200 MG/10 ML 10 ML UNIT-DOSE CUPS PO PRN (10:33)
[2024-07-07] MEDS: AZITHROMYCIN IVPB 250 MG in DEXTROSE 5%-WATER - 250 ML IVPB SCH (12:25)
[2024-07-07] MEDS: diphenhydrAMINE HCL 25 MG CAPSULE (FP) PO ONE (20:51)
[2024-07-08 05:18] VITALS: BP 108/57; PULSE 69; TEMP 98.4
[2024-07-08 08:21] LABS: BASO % 0.6 % (0-2.0); HEMATOCRIT 36.1 % (32.4-45.2); HEMOGLOBIN 11.6 GM/dL (10.7-15.3); LYMPH % 32.1 % (8-40); MCH 29.5 pg (25.7-33.7); MCHC 32.1 g/dl (32.0-36.0); NEUT % 60.3 % (42.8-82.8); PLATELET COUNT 307 10^3/uL (134-434); RBC 3.92 M/mm3 (3.60-5.2); RDW 14.5 % (11.6-15.6); WHITE BLOOD COUNT 6.8 K/mm3 (4.0-10.0)
[2024-07-08 08:32] LABS: POTASSIUM 5.1 mmol/L (3.5-5.1)
[2024-07-08 08:41] LABS: ALBUMIN 3.1 g/dl (3.4-5.0); CALCIUM 8.3 mg/dL (8.5-10.1); MAGNESIUM 2.3 mg/dL (1.8-2.4)
[2024-07-08 08:44] LABS: CREATININE 0.9 mg/dL (0.55-1.3)
[2024-07-08 08:45] LABS: BILIRUBIN,TOTAL 0.4 mg/dL (0.2-1)
[2024-07-08 08:46] LABS: TOT PROT 6.2 g/dl (6.4-8.2)
[2024-07-08 09:03] VITALS: RESP 16
== END 2024-07-08 13:20 | disposition home or self-care (01) | DRG 194 ==
LOC: JER 09:25 → JERBED 13:23 → J8W 20:20
PROVIDERS: ADMIT Internal Medicine; ATTEND Nurse Practitioner Acute Care
DX: J18.9 Pneumonia, unspecified organism (principal); J44.0 Chronic obstructive pulmonary disease with (acute) lower respiratory infection; J44.1 Chronic obstructive pulmonary disease with (acute) exacerbation; J44.9 Chronic obstructive pulmonary disease, unspecified; I10 Essential (primary) hypertension; E78.5 Hyperlipidemia, unspecified; M81.0 Age-related osteoporosis without current pathological fracture
CPT/HCPCS: 0241U-QW; 36415; 71045-TC-FY; 80053; 81003; 82803; 83735; 84484; 85025; 85027; 87086; 93005; 93010; 93306-TC; 94640; 99285-25; J0131; J1100

== ENCOUNTER 2024-09-20 20:03 | Observation (INO) | payer OTHER ==
[2024-09-20] MEDS ORDERED: ACETAMINOPHEN INJECTION 100 ML ONE (21:18)
[2024-09-20 21:22] LABS: BASO % 0.4 % (0-2.0); EOS % 1.8 % (0-4.5); HEMATOCRIT 39.7 % (32.4-45.2); HEMOGLOBIN 12.7 GM/dL (10.7-15.3); LYMPH % 9.9 % (8-40); MEAN CELL VOLUME 90.8 fl (80-96); MEAN PLT VOLUME 6.7 fl (7.5-11.1); MONO % 5.8 % (3.8-10.2); NEUT % 82.1 % (42.8-82.8); PLATELET COUNT 207 10^3/uL (134-434); RBC 4.38 M/mm3 (3.60-5.2); RDW 14.5 % (11.6-15.6); WHITE BLOOD COUNT 7.3 K/mm3 (4.0-10.0)
[2024-09-20] MEDS: ACETAMINOPHEN 1000 MG/100 ML BAG IVPB ONE (21:24)
[2024-09-20 21:44] LABS: VENOUS BASE EXCESS 1.1 mmol/L (-2-2); VENOUS O2 SATURATION 57.8 % (70-80); VENOUS PCO2 48.2 mmHg (38-52); VENOUS PH 7.367 (7.310-7.410)
[2024-09-20 21:47] LABS: CHLORIDE 106 mmol/L (98-107); SODIUM 137 mmol/L (136-145)
[2024-09-20 21:49] LABS: ALBUMIN 3.4 g/dl (3.4-5.0); BLOOD UREA NITROGEN 11.1 mg/dL (7-18); CALCIUM 8.5 mg/dL (8.5-10.1); CO2 28 mmol/L (21-32); GLUCOSE,RANDOM 129 mg/dL (74-106)
[2024-09-20 21:52] LABS: CREATININE 0.9 mg/dL (0.55-1.3); SGOT/AST 62 U/L (15-37); SGPT/ALT 30 U/L (13-61)
[2024-09-20 21:54] LABS: BILIRUBIN,TOTAL 0.4 mg/dL (0.2-1)
[2024-09-20 21:55] LABS: ALK PHOS 103 U/L (45-117)
[2024-09-20 22:04] LABS: ANION GAP 3 mmol/L (4-13); POTASSIUM 6.5 mmol/L (3.5-5.1)
[2024-09-20] MEDS ORDERED: CEFTRIAXONE 1 G/50 ML PREMIX 50 ML IVPB ONE (22:38)
[2024-09-20] MEDS: CEFTRIAXONE 1,000 MG in DEXTROSE 5%-WATER - 50 ML IVPB ONE (22:42)
[2024-09-20 22:57] LABS: CHLORIDE 106 mmol/L (98-107); SODIUM 136 mmol/L (136-145)
[2024-09-20 22:59] LABS: BLOOD UREA NITROGEN 10.7 mg/dL (7-18); CALCIUM 7.9 mg/dL (8.5-10.1); CO2 26 mmol/L (21-32)
[2024-09-20 23:00] LABS: GLUCOSE,RANDOM 126 mg/dL (74-106)
[2024-09-20] MEDS ORDERED: AZITHROMYCIN IVPB 500 MG/250 ML BAG IVPB ONE (23:00)
[2024-09-20 23:03] LABS: CREATININE 0.8 mg/dL (0.55-1.3)
[2024-09-20 23:04] LABS: ANION GAP 4 mmol/L (4-13); POTASSIUM 7.1 mmol/L (3.5-5.1)
[2024-09-20] MEDS: AZITHROMYCIN IVPB 500 MG in DEXTROSE 5%-WATER - 250 ML IVPB ONE (23:05)
[2024-09-20] MEDS ORDERED: KETOROLAC TROMETHAMINE 15 MG/ML VIAL ONE (23:52)
[2024-09-21] MEDS: KETOROLAC TROMETHAMINE 15 MG/ML VIAL IVPUSH ONE (00:03)
[2024-09-21] MEDS: SODIUM CHLORIDE 0.9% 500 ML INFUS.BAG IV ONE (00:03)
[2024-09-21] MEDS ORDERED: ALBUTEROL SO4 HFA INHALER IH PRN (01:50)
[2024-09-21] MEDS ORDERED: ALBUTEROL SO4 2.5/IPRATROPIUM 0.5 INH SOL 3 ML VIAL.NEB. NEB PRN (02:39)
[2024-09-21] MEDS: methylPREDNISolone NA SUCC 40 MG/1 ML VIAL IVPUSH SCH (03:13)
[2024-09-21 03:15] VITALS: BMI 24.1
[2024-09-21] MEDS: ENOXAPARIN NA (PORCINE) 40 MG/0.4 ML DISP.SYRIN SQ SCH (09:13)
[2024-09-21] MEDS: BUDESONIDE/FORMETEROL FUMARATE 160/4.5 mcg INHALER IH SCH (09:25)
[2024-09-21 09:33] LABS: BASO % 0.3 % (0-2.0); EOS % 0.3 % (0-4.5); HEMATOCRIT 37.6 % (32.4-45.2); LYMPH % 15.9 % (8-40); MCH 28.9 pg (25.7-33.7); MCHC 31.8 g/dl (32.0-36.0); MEAN CELL VOLUME 90.9 fl (80-96); MEAN PLT VOLUME 6.9 fl (7.5-11.1); MONO % 1.6 % (3.8-10.2); NEUT % 81.9 % (42.8-82.8); PLATELET COUNT 209 10^3/uL (134-434); RBC 4.14 M/mm3 (3.60-5.2); RDW 14.2 % (11.6-15.6); WHITE BLOOD COUNT 4.1 K/mm3 (4.0-10.0)
[2024-09-21 09:41] LABS: POTASSIUM 4.3 mmol/L (3.5-5.1)
[2024-09-21 09:43] LABS: CALCIUM 8.1 mg/dL (8.5-10.1)
[2024-09-21 09:44] LABS: BLOOD UREA NITROGEN 11.1 mg/dL (7-18)
[2024-09-21 09:47] LABS: CREATININE 0.8 mg/dL (0.55-1.3); PHOSPHOROUS 3.2 mg/dL (2.5-4.9)
[2024-09-21 09:48] LABS: BILIRUBIN,TOTAL 0.2 mg/dL (0.2-1)
[2024-09-21 09:49] LABS: TOT PROT 6.1 g/dl (6.4-8.2)
[2024-09-21] MEDS ORDERED: FLUTICASONE/UMECLIDIN/VILANTER(100-62.5-25 TRELEGY ELLIPTA) INAHLER IH SCH (10:00)
[2024-09-21] MEDS ORDERED: AZITHROMYCIN 250 MG TABLET PO SCH (10:00)
[2024-09-21] MEDS ORDERED: CEFTRIAXONE 1 G/50 ML PREMIX 50 ML IVPB SCH (10:00)
[2024-09-21 15:28] VITALS: RESP 18
[2024-09-21] MEDS ORDERED: ACETAMINOPHEN 325 MG TABLET (FP) PO ONE (18:14)
[2024-09-21] MEDS: DOCUSATE SODIUM 100 MG CAPSULE (FP) PO ONE (20:22)
[2024-09-21] MEDS: AZITHROMYCIN 250 MG TABLET PO SCH (22:34)
[2024-09-21] MEDS: CEFTRIAXONE 1 G/50 ML PREMIX 50 ML IVPB SCH (22:34)
[2024-09-22] MEDS: methylPREDNISolone NA SUCC 40 MG/1 ML VIAL IVPUSH SCH (06:13)
[2024-09-22] MEDS: LIDOCAINE 4% PATCH TP ONE (06:55)
[2024-09-22 09:41] LABS: BASO % 0.2 % (0-2.0); HEMATOCRIT 36.2 % (32.4-45.2); HEMOGLOBIN 11.7 GM/dL (10.7-15.3); LYMPH % 9.1 % (8-40); MCHC 32.2 g/dl (32.0-36.0); MEAN CELL VOLUME 89.9 fl (80-96); MEAN PLT VOLUME 7.3 fl (7.5-11.1); MONO % 1.3 % (3.8-10.2); NEUT % 89.4 % (42.8-82.8); PLATELET COUNT 230 10^3/uL (134-434); RBC 4.03 M/mm3 (3.60-5.2); RDW 14.1 % (11.6-15.6); WHITE BLOOD COUNT 12.1 K/mm3 (4.0-10.0)
[2024-09-22] MEDS: LIDOCAINE PATCH REMOVAL MC ONE (18:52)
[2024-09-23] MEDS: predniSONE 20 MG TABLET (UD) PO SCH (09:04)
[2024-09-23 09:06] LABS: HEMATOCRIT 39.7 % (32.4-45.2); HEMOGLOBIN 13.1 GM/dL (10.7-15.3); LYMPH % 17.8 % (8-40); MCH 29.5 pg (25.7-33.7); MEAN CELL VOLUME 89.4 fl (80-96); MEAN PLT VOLUME 6.8 fl (7.5-11.1); MONO % 2.6 % (3.8-10.2); NEUT % 79.6 % (42.8-82.8); PLATELET COUNT 278 10^3/uL (134-434); RBC 4.44 M/mm3 (3.60-5.2); RDW 14.4 % (11.6-15.6); WHITE BLOOD COUNT 9.4 K/mm3 (4.0-10.0)
[2024-09-23 09:24] VITALS: BP 118/56; TEMP 97.7
[2024-09-23 13:29] VITALS: PULSE 88
== END 2024-09-23 16:04 | disposition home or self-care (01) ==
LOC: JER 20:03 → JERBED 22:36 → J6S 09-21 02:59
PROVIDERS: ADMIT Internal Medicine; ATTEND Internal Medicine
PROC: 3E0333Z Introduction of Anti-inflammatory into Peripheral Vein, Percutaneous Approach (ICD-10-PCS; principal; 2024-09-20)
PROC: 3E03329 Introduction of Other Anti-infective into Peripheral Vein, Percutaneous Approach (ICD-10-PCS; 2024-09-20)
PROC: 3E0337Z Introduction of Electrolytic and Water Balance Substance into Peripheral Vein, Percutaneous Approach (ICD-10-PCS; 2024-09-20)
PROC: 3E033GC Introduction of Other Therapeutic Substance into Peripheral Vein, Percutaneous Approach (ICD-10-PCS; 2024-09-20)
PROC: 3E0F7SF Introduction of Other Gas into Respiratory Tract, Via Natural or Artificial Opening (ICD-10-PCS; 2024-09-20)
DX: J96.01 Acute respiratory failure with hypoxia (principal); J18.9 Pneumonia, unspecified organism; J20.9 Acute bronchitis, unspecified; J47.9 Bronchiectasis, uncomplicated; J45.901 Unspecified asthma with (acute) exacerbation; J44.1 Chronic obstructive pulmonary disease with (acute) exacerbation; E87.5 Hyperkalemia; R91.8 Other nonspecific abnormal finding of lung field; R91.1 Solitary pulmonary nodule; R06.02 Shortness of breath; R06.2 Wheezing; Z86.16 Personal history of COVID-19
CPT/HCPCS: 0241U-QW; 36415; 71045-TC-FY; 71250-TC; 80048; 80053; 82803; 83735; 84100; 84132; 84484; 85025; 87070; 87205; 93005; 93010; 94640; 94761; 96365; 96367; 96368; 96372; 96375; 96376; 99285-25; G0378; J0131